=== PATIENT | male | born 1945 | race Caucasian/White ===

== ENCOUNTER → 2016-09-10 | Outpatient (CLI) | payer MEDICARE, BC ==
[~2016-09-10] MED LIST: AMANTADINE HCL100 M1 PO; BP MED; BYSTOLIC10 MG PO; BYSTOLIC20 MG PO; CELEBREX 200MG200 MG PO; COGENTIN 2MG2 MG/TA1 PO; ESKALITH300 MG PO; FLOMAX 0.40.4 MG/CAP PO; HALCION0.25 MG PO; LEVAQUIN 2250 MG/TAB PO; LITHIUM 30300 MG/CAP PO; MEDROL 4MG DOSPA4 MG PO; MOBIC15 MG PO; MULTI VITAMINS1 TAB PO; MYRBETR50MG PO; NORCO 325 MG-51 TAB PO; OSCAL 500 TAB500 MG; PARCOPA 25/101 UDTAB NG; PROSCAR 5MG5 MG PO; PROTONIX 40MG T40 MG PO; SINGULAIR 110 MG/TAB PO; TRIFLUOPERAZINE PO; TRIFLUOPERAZINE2 MG PO; UNABLE; VALTREX1 GM PO; VASOTEC20 MG PO; ZANTAC 300300 MG PO; ZOFRAN 4MG T4 MG/TAB PO; ZOFRAN ODT4 MG PO; [UNRECOGNIZED DRUG - OTHER] OP
== END ==
LOC: COL.PUL 08:00
DX: R06.02 Shortness of breath (principal); Z87.891 Personal history of nicotine dependence

== ENCOUNTER → 2016-09-11 | Outpatient (CLI) | payer MEDICARE, BC | LOC: COL.RAD 09:32 | DX: D48.7 Neoplasm of uncertain behavior of other specified sites (principal); R93.0 Abnormal findings on diagnostic imaging of skull and head, not elsewhere classified; Z87.891 Personal history of nicotine dependence; Z86.03 Personal history of neoplasm of uncertain behavior | CPT/HCPCS: A9503 ==

== ENCOUNTER 2016-09-17 12:38 | Inpatient (IN) | payer MEDICARE, BC ==
[2016-09-17] VITALS (14 sets, daily range): BP systolic 109–152; BP diastolic 49–91; PULSE 52–65; TEMP 97.9
[~2016-09-17] VITALS: Ht 188 cm; Wt 88.5 kg
[~2016-09-17 12:38] MED LIST changes: -HALCION0.25 MG PO; -OSCAL 500 TAB500 MG; -SINGULAIR 110 MG/TAB PO; -ZOFRAN ODT4 MG PO
[2016-09-17] MEDS ORDERED: OSCAL 500 TAB500 MG (17:15)
[2016-09-17] MEDS ORDERED: NORCO 325 MG-51 TAB PO (17:15)
[2016-09-17] MEDS ORDERED: HALCION0.25 MG PO (17:17)
[2016-09-17] MEDS ORDERED: SINGULAIR 110 MG/TAB PO (17:17)
[2016-09-17] MEDS ORDERED: MOBIC15 MG PO (17:18)
[2016-09-17] MEDS ORDERED: ZOFRAN ODT4 MG PO (17:19)
[2016-09-18 02:19] VITALS: BP 116/66; PULSE 47; TEMP 98
[2016-09-18 05:54] VITALS: BP 130/70; PULSE 85; TEMP 98.5
[2016-09-18 07:34] VITALS: BP 127/59; PULSE 46; TEMP 98.1
[2016-09-18] MEDS ORDERED: COGENTIN 2MG2 MG/TA1 PO (08:59)
[2016-09-18 13:36] VITALS: BP 112/61; PULSE 51; TEMP 97.3
[2016-09-18 17:08] VITALS: BP 115/61; PULSE 50; TEMP 97.4
[2016-09-18 21:59] VITALS: BP 120/57; PULSE 45; TEMP 97.8
[2016-09-19 02:27] VITALS: BP 116/56; PULSE 69; TEMP 98.1
[2016-09-19 05:09] VITALS: BP 133/59; PULSE 51; TEMP 98.3
[2016-09-19 10:09] VITALS: BP 127/62; PULSE 50; TEMP 97.1
[2016-09-19 13:24] VITALS: BP 127/68; PULSE 52; TEMP 97.7
[2016-09-19 18:40] VITALS: BP 133/66; PULSE 54; TEMP 98.6
[2016-09-19 21:13] VITALS: BP 112/45; PULSE 71; TEMP 97.6
[2016-09-20 02:08] VITALS: BP 102/50; PULSE 62; TEMP 98.2
[2016-09-20 05:21] VITALS: BP 118/50; PULSE 52; TEMP 98.6
[2016-09-20 10:00] VITALS: BP 112/67; PULSE 52; TEMP 96.8
[2016-09-20 14:00] VITALS: BP 112/67; PULSE 52; TEMP 96.8
== END 2016-09-20 16:00 | disposition home health service (06) | DRG 200 ==
LOC: COL.RAD 12:38 → SURG 16:57 → COL.RAD 19:18 → SURG 19:18
PROC: 0BBC3ZX Excision of Right Upper Lung Lobe, Percutaneous Approach, Diagnostic (ICD-10-PCS; principal; 2016-09-17)
PROC: 0W9930Z Drainage of Right Pleural Cavity with Drainage Device, Percutaneous Approach (ICD-10-PCS; 2016-09-17)
DX: J95.811 Postprocedural pneumothorax (principal); C34.11 Malignant neoplasm of upper lobe, right bronchus or lung; I10 Essential (primary) hypertension; F20.9 Schizophrenia, unspecified; J44.9 Chronic obstructive pulmonary disease, unspecified; Z87.891 Personal history of nicotine dependence

== ENCOUNTER 2017-09-29 06:47 | Day surgery (SDC) | payer MEDICARE, BC ==
[~2017-09-29] VITALS: Ht 185.4 cm; Wt 90.7 kg
[~2017-09-29 06:47] MED LIST changes: +HALCION0.25 MG PO; +OSCAL 500 TAB500 MG; +SINGULAIR 110 MG/TAB PO; +ZOFRAN ODT4 MG PO
[2017-09-29 07:22] VITALS: BP 134/91; PULSE 76; TEMP 98.8
[2017-09-29] MEDS ORDERED: LINZESS72 MCG PO (07:35)
[2017-09-29] MEDS ORDERED: VESICARE10 MG PO (07:35)
[2017-09-29 08:52] VITALS: BP 144/84; PULSE 68; TEMP 98
[2017-09-29 09:00] VITALS: BP 141/108; PULSE 65
[2017-09-29 09:15] VITALS: BP 136/83; PULSE 64
[2017-09-29 09:30] VITALS: BP 148/74; PULSE 66
[2017-09-29 12:49] VITALS: BP 133/72; PULSE 64
== END 2017-09-29 10:15 | disposition home or self-care (01) ==
LOC: SDCO 06:47
DX: J98.11 Atelectasis (principal); C34.90 Malignant neoplasm of unspecified part of unspecified bronchus or lung; J44.9 Chronic obstructive pulmonary disease, unspecified; R06.02 Shortness of breath; R05 Cough; K58.9 Irritable bowel syndrome, unspecified; I10 Essential (primary) hypertension; M19.90 Unspecified osteoarthritis, unspecified site; F20.9 Schizophrenia, unspecified; K21.9 Gastro-esophageal reflux disease without esophagitis; E83.52 Hypercalcemia; E87.1 Hypo-osmolality and hyponatremia; F32.9 Major depressive disorder, single episode, unspecified; F41.9 Anxiety disorder, unspecified; N40.0 Benign prostatic hyperplasia without lower urinary tract symptoms; N32.89 Other specified disorders of bladder; R93.8 Abnormal findings on diagnostic imaging of other specified body structures; Z88.5 Allergy status to narcotic agent; Z85.118 Personal history of other malignant neoplasm of bronchus and lung; Z87.891 Personal history of nicotine dependence
CPT/HCPCS: OP; J2704; J3010; J7030

== ENCOUNTER → 2017-10-19 | Outpatient (CLI) | payer MEDICARE, BC ==
[~2017-10-19] MED LIST changes: +LINZESS72 MCG PO; +VESICARE10 MG PO
== END ==
LOC: COL.VAS 09:12
DX: I51.7 Cardiomegaly (principal)

== ENCOUNTER 2017-11-21 18:56 | Emergency (ER) | payer MEDICARE, BC ==
[~2017-11-21] VITALS: Ht 185.4 cm; Wt 93.6 kg
[2017-11-21 18:59] VITALS: TEMP 97.5
[2017-11-21] MEDS ORDERED: LIPITOR20 MG PO (19:47)
[2017-11-21 20:44] LABS: BASO % 0.4 % (0.0-2.0); EOS # 0.2 (0.0-0.7); EOS % 2.8 % (0-4.0); GRAN # 6.1 (1.4-6.5); GRAN % 78.1 % (42.2-75.2); HEMATOCRIT 43.2 % (42.0-52.0); HEMOGLOBIN 14.8 g/dl (13.5-18.0); LYMPH # 0.6 (1.2-3.4); LYMPH % 7.5 % (20.0-51.0); MEAN CELL VOLUME 86 fl (80.0-100.0); MEAN CORPUSCULAR HEMOGLOBIN 29 pg (27.0-31.0); MEAN CORPUSCULAR HGB CONC 34 g/dl (33.0-37.0); MEAN PLATELET VOLUME 8.5 fl (7.4-10.4); MONO # 0.8 (0.1-0.6); MONO % 10.3 % (1.7-9.3); PLATELET COUNT 246 K/mm3 (130-400); RED BLOOD COUNT 5.03 M/mm3 (4.20-5.60); REDCELL DISTRIBUTION WIDTH-CV 13.9 % (11.5-14.5)
[2017-11-21 20:47] LABS: ALBUMIN 4.3 gm/dL (3.5-5.0); BILIRUBIN,TOTAL 0.6 mg/dL (0.0-1.0); CALCIUM 9.6 mg/dL (8.4-10.2); CREATININE, serum 0.86 mg/dL (0.66-1.25); POTASSIUM 4.3 mmol/L (3.4-5.0); TOTAL PROTEIN 7.8 gm/dL (6.4-8.2)
[2017-11-21 21:08] VITALS: BP 122/76; PULSE 67
== END 2017-11-21 21:09 | disposition home or self-care (01) ==
LOC: COL.ER 18:56
PROVIDERS: Physician Assistant
DX: I10 Essential (primary) hypertension (principal); J44.9 Chronic obstructive pulmonary disease, unspecified; Z85.118 Personal history of other malignant neoplasm of bronchus and lung; F31.9 Bipolar disorder, unspecified; F20.9 Schizophrenia, unspecified; Z87.891 Personal history of nicotine dependence

== ENCOUNTER → 2018-06-18 | Outpatient (CLI) | payer MEDICARE, BC ==
[~2018-06-18] MED LIST changes: +LIPITOR20 MG PO
== END ==
LOC: COL.VAS 13:30
DX: I27.20 Pulmonary hypertension, unspecified (principal)

== ENCOUNTER 2018-07-08 18:30 | Emergency (ER) | payer MEDICARE, BC ==
[~2018-07-08] VITALS: Ht 185.4 cm; Wt 90.9 kg
[2018-07-08 18:39] VITALS: TEMP 98
[2018-07-08 19:05] LABS: BASO % 0.3 % (0.0-2.0); EOS # 0.3 (0.0-0.7); EOS % 4.4 % (0-4.0); GRAN # 5.1 (1.4-6.5); GRAN % 73.3 % (42.2-75.2); HEMATOCRIT 45.8 % (42.0-52.0); HEMOGLOBIN 14.7 g/dl (13.5-18.0); LYMPH # 0.7 (1.2-3.4); MEAN CELL VOLUME 89 fl (80.0-100.0); MEAN CORPUSCULAR HEMOGLOBIN 28 pg (27.0-31.0); MEAN CORPUSCULAR HGB CONC 32 g/dl (33.0-37.0); MEAN PLATELET VOLUME 8.7 fl (7.4-10.4); MONO # 0.8 (0.1-0.6); MONO % 11.3 % (1.7-9.3); PLATELET COUNT 245 K/mm3 (130-400); RED BLOOD COUNT 5.17 M/mm3 (4.20-5.60); REDCELL DISTRIBUTION WIDTH-CV 13.2 % (11.5-14.5)
[2018-07-08 19:13] LABS: INR 0.9 (0.8-3.0); PROTHROMBIN TIME 10.4 SECONDS (9.7-12.8)
[2018-07-08 19:19] LABS: ALANINE AMINOTRANSFERASE 27 U/L (21-72); ALKALINE PHOSPHATASE 73 U/L (50-136); ANION GAP 9 mmol/L (7-16); AST,SGOT 31 U/L (15-37); BILIRUBIN,TOTAL 0.8 mg/dL (0.0-1.0); BLOOD UREA NITROGEN 17 mg/dL (9-20); CALCIUM 9.5 mg/dL (8.4-10.2); CARBON DIOXIDE 22 mmol/L (22-30); CHLORIDE 102 mmol/L (98-107); CREATININE, serum 0.93 mg/dL (0.66-1.25); GLUCOSE 104 mg/dL (74-106); POTASSIUM 4.1 mmol/L (3.4-5.0); SODIUM 133 mmol/L (137-145); TOTAL PROTEIN 6.8 gm/dL (6.4-8.2)
[2018-07-08 19:20] LABS: C-REACTIVE PROTEIN < 0.5 mg/dL (0.0-0.9)
[2018-07-08] MEDS ORDERED: LINZESS145CAP ×2 (19:54→19:55)
[2018-07-08] MEDS ORDERED: VESICARE10 MG PO (19:56)
[2018-07-08] MEDS ORDERED: RISPERDAL 1M1 MG/TAB PO (19:56)
[2018-07-08] MEDS ORDERED: LIPITOR20 MG PO (19:57)
[2018-07-08 20:11] LABS: COLLECTION METHOD CLEAN CATCH
[2018-07-08 20:21] LABS: PH 6 (5-8); SQUAMOUS EPITHELIAL None Seen /hpf; URINE APPEARANCE Clear; URINE BACTERIA None Seen /hpf; URINE BILIRUBIN Negative (NEGATIVE); URINE BLOOD Negative (NEGATIVE); URINE COLOR Straw; URINE GLUCOSE Negative (NEGATIVE); URINE KETONE Negative (NEGATIVE); URINE LEUKOCYTE ESTERASE Negative (NEGATIVE); URINE NITRATE Negative (NEGATIVE); URINE PROTEIN(semi-quant) Negative (NEGATIVE); URINE RBC 0-2 /hpf; URINE UROBILINOGEN Negative (NEGATIVE)
[2018-07-08 21:24] VITALS: BP 134/85; PULSE 61
== END 2018-07-08 21:26 | disposition home or self-care (01) ==
LOC: COL.ER 18:30
PROVIDERS: Emergency Medicine
DX: R51 Headache (principal); R53.81 Other malaise; J44.9 Chronic obstructive pulmonary disease, unspecified; I10 Essential (primary) hypertension; F31.9 Bipolar disorder, unspecified; F20.9 Schizophrenia, unspecified
CPT/HCPCS: J7030

== ENCOUNTER → 2018-08-30 | Outpatient (CLI) | payer MEDICARE, BC ==
[~2018-08-30] MED LIST changes: +LINZESS145CAP; +RISPERDAL 1M1 MG/TAB PO
== END ==
LOC: COL.RAD 15:51
DX: R47.81 Slurred speech (principal); R51 Headache; Z85.118 Personal history of other malignant neoplasm of bronchus and lung

== ENCOUNTER → 2018-11-10 | Outpatient (CLI) | payer MEDICARE, BC | LOC: COL.RAD 09:15 | DX: R79.89 Other specified abnormal findings of blood chemistry (principal) | CPT/HCPCS: A9516 ==

== ENCOUNTER → 2019-04-27 | Outpatient (CLI) | payer MEDICARE, BC | LOC: MHCPAIN 14:04 | DX: G89.29 Other chronic pain (principal); M47.817 Spondylosis without myelopathy or radiculopathy, lumbosacral region; M54.16 Radiculopathy, lumbar region; M53.3 Sacrococcygeal disorders, not elsewhere classified | CPT/HCPCS: G0463 ==

== ENCOUNTER → 2019-04-28 | Outpatient (CLI) | payer MEDICARE, BC | LOC: MHCPAIN 13:43 | DX: M47.817 Spondylosis without myelopathy or radiculopathy, lumbosacral region (principal); M54.16 Radiculopathy, lumbar region | CPT/HCPCS: J1100; Q9967 ==

== ENCOUNTER → 2019-05-09 | Outpatient (CLI) | payer MEDICARE, BC | LOC: MHCPAIN 10:44 | DX: G89.29 Other chronic pain (principal); M47.817 Spondylosis without myelopathy or radiculopathy, lumbosacral region; M54.16 Radiculopathy, lumbar region; M53.3 Sacrococcygeal disorders, not elsewhere classified | CPT/HCPCS: G0463 ==

== ENCOUNTER → 2019-05-16 | Outpatient (CLI) | payer MEDICARE, BC | LOC: MHCPAIN 10:55 | DX: M48.07 Spinal stenosis, lumbosacral region (principal); M51.27 Other intervertebral disc displacement, lumbosacral region | CPT/HCPCS: J1100; Q9967 ==

== ENCOUNTER → 2019-05-31 | Outpatient (CLI) | payer MEDICARE, BC | LOC: MHCPAIN 14:39 | DX: M54.16 Radiculopathy, lumbar region (principal); M53.3 Sacrococcygeal disorders, not elsewhere classified | CPT/HCPCS: G0463 ==

== ENCOUNTER → 2019-06-16 | Outpatient (CLI) | payer MEDICARE, BC | LOC: MHCPAIN 12:44 | DX: M48.07 Spinal stenosis, lumbosacral region (principal) ==

== ENCOUNTER → 2019-06-28 | Outpatient (CLI) | payer MEDICARE, BC | LOC: MHCPAIN 15:07 | DX: M47.817 Spondylosis without myelopathy or radiculopathy, lumbosacral region (principal); M54.16 Radiculopathy, lumbar region | CPT/HCPCS: G0463 ==

== ENCOUNTER 2019-08-18 15:20 | Outpatient (RCR) | payer MEDICARE, BC ==
[2019-11-10] MEDS ORDERED: XALATAN EYE DROPS OU (12:09)
[2019-11-10] MEDS ORDERED: TRELEGY ELLIPT1 EACH IH (12:10)
[2019-11-10] MEDS ORDERED: IPRATROPIUM BROM3 M1 IH (12:10)
== END 2019-11-16 | disposition home or self-care (01) ==
LOC: WSPT
DX: M47.26 Other spondylosis with radiculopathy, lumbar region (principal); G89.29 Other chronic pain

== ENCOUNTER 2019-11-10 11:04 | Day surgery (SDC) | payer MEDICARE, BC ==
[~2019-11-10] VITALS: Ht 185.4 cm; Wt 84.3 kg
[2019-11-10 11:40] VITALS: BP 118/85; PULSE 115; TEMP 97.4
[2019-11-10] MEDS ORDERED: XALATAN EYE DROPS OU (12:09)
[2019-11-10] MEDS ORDERED: IPRATROPIUM BROM3 M1 IH (12:10)
[2019-11-10] MEDS ORDERED: TRELEGY ELLIPT1 EACH IH (12:10)
[2019-11-10 14:06] VITALS: TEMP 97.7
[2019-11-10 14:19] VITALS: BP 123/86; PULSE 109
--- NOTE | 2019-11-10 14:19 | NUR ---
Patient returns to room 6 per cart from PACU accompanied by Gaby GONZALEZ and is awake and alert. Temp 96.9 and room air sats 97%. Suprapubic catheter is draining pink tinged urine to dependent drainage bag. Scant bloody drainage noted at suprapubic insertion site. Denies pain or nausea. IV fluids infusing and site is free of redness. Siderails up x2 and call light in reach. grain thresher in the room. Patient is sipping on water.
[2019-11-10 14:34] VITALS: BP 139/96; PULSE 107
--- NOTE | 2019-11-10 14:34 | NUR ---
Urine remains pink tinged. Drinking Sprite.
[2019-11-10 14:49] VITALS: BP 132/73; PULSE 103
--- NOTE | 2019-11-10 14:49 | NUR ---
Suprapubic catheter continues to drain pink tinged urine. No clots noted. Denies pain or nausea.
--- NOTE | 2019-11-10 15:00 | NUR ---
IV discontinued and shown the patient and daycare provider on how to change dependent drainage bag to leg. Provided both bags to take home and alcohol wipes. Suprapubic secured with stat lock. Urine becoming more yellow.
--- NOTE | 2019-11-10 15:25 | NUR ---
Patient assisted with dressing. IV discontinued and site is free of redness. Tolerated toast and Sprite.
--- NOTE | 2019-11-10 15:33 | NUR ---
Patient dismissed to home driven by career development associate Lenore and taken to the front door per wheelchair and dismissed to home with instructions in hand. Sent home with leg bag and dependent drainage bags, alcohol wipes and office number for questions and concerns.
== END 2019-11-10 15:35 | disposition home or self-care (01) ==
LOC: SDCO 11:04
DX: R33.9 Retention of urine, unspecified (principal); C34.90 Malignant neoplasm of unspecified part of unspecified bronchus or lung; Z11.59 Encounter for screening for other viral diseases; Z90.79 Acquired absence of other genital organ(s); Z88.5 Allergy status to narcotic agent; Z87.891 Personal history of nicotine dependence
CPT/HCPCS: C1769; J0690; J1100; J1885; J2405; J2704

== ENCOUNTER 2020-01-23 13:55 | Outpatient (RCR) | payer MEDICARE, BC ==
[~2020-01-23 13:55] MED LIST changes: +IPRATROPIUM BROM3 M1 IH; +TRELEGY ELLIPT1 EACH IH; +XALATAN EYE DROPS OU
[2020-03-01] MEDS ORDERED: OMNICEF 300MG300 MG PO (20:29)
[2020-04-07] MEDS ORDERED: FLOMAX 0.40.4 MG/CAP PO (07:16)
== END 2020-04-22 | disposition home or self-care (01) ==
LOC: WSST
DX: R13.12 Dysphagia, oropharyngeal phase (principal)

== ENCOUNTER → 2020-02-10 | Outpatient (CLI) | payer MEDICARE, BC | LOC: COL.RAD | DX: C34.90 Malignant neoplasm of unspecified part of unspecified bronchus or lung (principal); R13.10 Dysphagia, unspecified ==

== ENCOUNTER 2020-03-01 18:56 | Emergency (ER) | payer MEDICARE, BC ==
[~2020-03-01] VITALS: Ht 185.4 cm; Wt 78.2 kg
[2020-03-01 19:48] LABS: BASO % 0.4 % (0.0-2.0); EOS # 0.3 (0.0-0.7); EOS % 3.9 % (0-4.0); GRAN # 5.8 (1.4-6.5); GRAN % 79.1 % (42.2-75.2); HEMATOCRIT 47.2 % (42.0-52.0); HEMOGLOBIN 15.1 g/dl (13.5-18.0); LYMPH # 0.6 (1.2-3.4); LYMPH % 8.7 % (20.0-51.0); MEAN CELL VOLUME 90 fl (80.0-100.0); MEAN CORPUSCULAR HEMOGLOBIN 29 pg (27.0-31.0); MEAN CORPUSCULAR HGB CONC 32 g/dl (33.0-37.0); MEAN PLATELET VOLUME 9.1 fl (7.4-10.4); MONO # 0.6 (0.1-0.6); MONO % 7.5 % (1.7-9.3); PLATELET COUNT 283 K/mm3 (130-400); RED BLOOD COUNT 5.27 M/mm3 (4.20-5.60); REDCELL DISTRIBUTION WIDTH-CV 13.5 % (11.5-14.5)
[2020-03-01 19:55] LABS: INR 1.2 (0.8-3.0); PROTHROMBIN TIME 13.7 SECONDS (9.7-12.8)
[2020-03-01 20:01] LABS: ALANINE AMINOTRANSFERASE 20 U/L (4-49); ALBUMIN 4.1 gm/dL (3.5-5.0); ALKALINE PHOSPHATASE 90 U/L (50-136); ANION GAP 9 mmol/L (7-16); AST,SGOT 27 U/L (15-37); BILIRUBIN,TOTAL 0.5 mg/dL (0.0-1.0); BLOOD UREA NITROGEN 28 mg/dL (9-20); C-REACTIVE PROTEIN 2.1 mg/dL (0.0-0.9); CALCIUM 9.9 mg/dL (8.4-10.2); CARBON DIOXIDE 23 mmol/L (22-30); CHLORIDE 106 mmol/L (98-107); CREATININE, serum 1.31 (0.66-1.25); GLUCOSE 136 mg/dL (74-106); LIPASE 250 U/L (23-300); POTASSIUM 4.2 mmol/L (3.4-5.0); SODIUM 138 mmol/L (137-145); TOTAL PROTEIN 7.4 gm/dL (6.4-8.2)
[2020-03-01 20:07] LABS: COLLECTION METHOD CLEAN CATCH
[2020-03-01 20:20] LABS: PH 5 (5-8); SQUAMOUS EPITHELIAL None Seen /hpf; URINE APPEARANCE Cloudy; URINE BACTERIA Moderate /hpf; URINE BILIRUBIN Negative (NEGATIVE); URINE BLOOD 1+ (NEGATIVE); URINE COLOR Yellow; URINE GLUCOSE Negative (NEGATIVE); URINE KETONE Negative (NEGATIVE); URINE LEUKOCYTE ESTERASE 3+ (NEGATIVE); URINE NITRATE Positive (NEGATIVE); URINE PROTEIN(semi-quant) Negative (NEGATIVE); URINE UROBILINOGEN Negative (NEGATIVE)
[2020-03-01 20:20] LABS: TROPONIN-I < 0.012 ng/mL (0.000-0.035)
[2020-03-01] MEDS ORDERED: OMNICEF 300MG300 MG PO (20:29)
[2020-03-01 21:00] VITALS: BP 100/77; PULSE 57; TEMP 97.5
== END 2020-03-01 21:10 | disposition home or self-care (01) ==
LOC: COL.ER 18:56
PROVIDERS: Emergency Medicine
DX: T83.098A Other mechanical complication of other urinary catheter, initial encounter (principal); R33.9 Retention of urine, unspecified; F17.210 Nicotine dependence, cigarettes, uncomplicated; Z79.51 Long term (current) use of inhaled steroids
CPT/HCPCS: J0696; J7040

== ENCOUNTER 2020-04-07 06:46 | Emergency (ER) | payer MEDICARE, BC ==
[~2020-04-07] VITALS: Ht 185.4 cm; Wt 88.6 kg
[~2020-04-07 06:46] MED LIST changes: +OMNICEF 300MG300 MG PO
[2020-04-07 06:53] VITALS: TEMP 98
[2020-04-07] MEDS ORDERED: FLOMAX 0.40.4 MG/CAP PO (07:16)
[2020-04-07 07:36] VITALS: BP 128/73; PULSE 94
== END 2020-04-07 07:53 | disposition home or self-care (01) ==
LOC: COL.ER 06:46
DX: T83.198A Other mechanical complication of other urinary devices and implants, initial encounter (principal); I10 Essential (primary) hypertension; K21.9 Gastro-esophageal reflux disease without esophagitis; J44.9 Chronic obstructive pulmonary disease, unspecified; Z88.6 Allergy status to analgesic agent

== ENCOUNTER → 2020-04-18 | Outpatient (CLI) | payer MEDICARE, BC | LOC: COL.RAD 09:15 | DX: C34.11 Malignant neoplasm of upper lobe, right bronchus or lung (principal) | CPT/HCPCS: A9503 ==

== ENCOUNTER 2020-06-13 12:15 | Inpatient (IN) | payer MEDICARE, BC ==
[~2020-06-13] VITALS: Ht 185.4 cm; Wt 73.0 kg
[~2020-06-13 12:15] MED LIST changes: +LINZESS145CAP PO
[2020-06-13 13:49] LABS: ARTERIAL BLD GAS O2 SATURATION 95.9 % (92-100); ARTERIAL BLD GAS TCO2 CT 17.9; ARTERIAL BLOOD GAS BASE EXCESS -5.4 (-2-2); ARTERIAL BLOOD GAS HCO3 17.1 meq/L (22-26); ARTERIAL BLOOD GAS PCO2 26.3 mmHg (35-45); ARTERIAL BLOOD GAS PO2 70.2 mmHg (80-100); ARTERIAL BLOOD GAS pH 7.43 (7.35-7.45)
[2020-06-13 14:13] LABS: MEAN CELL VOLUME 89 fl (80.0-100.0); MEAN CORPUSCULAR HEMOGLOBIN 28 pg (27.0-31.0); MEAN CORPUSCULAR HGB CONC 32 g/dl (33.0-37.0); MEAN PLATELET VOLUME 8.6 fl (7.4-10.4); PLATELET COUNT 502 K/mm3 (130-400); REDCELL DISTRIBUTION WIDTH-CV 14.9 % (11.5-14.5)
[2020-06-13 14:24] LABS: INR 2.3 (0.8-3.0); PROTHROMBIN TIME 26.2 SECONDS (9.7-12.8)
[2020-06-13 14:28] LABS: ALANINE AMINOTRANSFERASE 170 U/L (4-49); ALBUMIN 4.1 gm/dL (3.5-5.0); ALKALINE PHOSPHATASE 99 U/L (50-136); ANION GAP 11 mmol/L (7-16); AST,SGOT 73 U/L (15-37); BILIRUBIN,TOTAL 0.8 mg/dL (0.0-1.0); BLOOD UREA NITROGEN 28 mg/dL (9-20); CALCIUM 10.6 mg/dL (8.4-10.2); CARBON DIOXIDE 19 mmol/L (22-30); CHLORIDE 108 mmol/L (98-107); CREATININE, serum 1.11 (0.66-1.25); GLUCOSE 120 mg/dL (74-106); POTASSIUM 4.5 mmol/L (3.4-5.0); SODIUM 138 mmol/L (137-145); TOTAL PROTEIN 7.6 gm/dL (6.4-8.2)
[2020-06-13 14:33] LABS: C-REACTIVE PROTEIN < 0.5 mg/dL (0.0-0.9)
[2020-06-13 14:38] LABS: TROPONIN-I < 0.012 ng/mL (0.000-0.035)
[2020-06-13 15:38] LABS: MUCOUS Present /lpf; PH 6 (5-8); SQUAMOUS EPITHELIAL None Seen /hpf; URINE APPEARANCE Hazy; URINE BACTERIA Rare /hpf; URINE BILIRUBIN Negative (NEGATIVE); URINE BLOOD Negative (NEGATIVE); URINE COLOR Yellow; URINE GLUCOSE Negative (NEGATIVE); URINE KETONE Negative (NEGATIVE); URINE LEUKOCYTE ESTERASE 3+ (NEGATIVE); URINE NITRATE Negative (NEGATIVE); URINE PROTEIN(semi-quant) Negative (NEGATIVE); URINE RBC 0-2 /hpf; URINE UROBILINOGEN Negative (NEGATIVE)
[2020-06-13 18:28] LABS: BAND 3 % (0-10); EOSINOPHIL 2 % (0-4); LYMPHOCYTE 3 % (20.0-51.0); MYELOCYTE 3 % (0-0); NEUTROPHILS 85 % (42.0-75.2); PLATELET ESTIMATE INCREASED (NORMAL)
[2020-06-13 20:10] VITALS: BP 116/64; PULSE 68; TEMP 97.2
[2020-06-13 22:54] VITALS: BP 116/64; PULSE 68; TEMP 97.2
--- NOTE | 2020-06-13 23:45 | NUR ---
Patient arrived to medical floor. Assessment complete. Wheezing with expiration, patient 94% on room air. Heart sounds normal. Bowels active x4. Pulses present throughout. No edema noted. IV right AC without complications. Abrasion to left thigh present. Patient has gutierrez to dependent drainage. Changed from leg bag to gutierrez bag. Denies pain. Orientated to medical floor. Denies questions. Denies needs. Call light in reach.
[2020-06-14] VITALS (7 sets, daily range): BP systolic 112–151; BP diastolic 73–88; PULSE 65–77; TEMP 97.6–98.4
--- NOTE | 2020-06-14 02:00 | NUR ---
Resting in bed. Denies needs. Call light in reach.
--- NOTE | 2020-06-14 06:36 | NUR ---
Patient had uneventful night. Resting in bed this AM. Call light in reach.
--- NOTE | 2020-06-14 07:10 | NUR ---
Report given CARLOS Sandy
--- NOTE | 2020-06-14 08:20 | NUR ---
CONSULT called to Dr Castaneda but he called back stating to call Rosendo. Office called and information passed on to Noemy.
[2020-06-14 08:48] LABS: HEMATOCRIT 45.9 % (42.0-52.0); HEMOGLOBIN 14.8 g/dl (13.5-18.0); MEAN CELL VOLUME 88 fl (80.0-100.0); MEAN CORPUSCULAR HEMOGLOBIN 28 pg (27.0-31.0); MEAN CORPUSCULAR HGB CONC 32 g/dl (33.0-37.0); MEAN PLATELET VOLUME 8.6 fl (7.4-10.4); PLATELET COUNT 468 K/mm3 (130-400); RED BLOOD COUNT 5.23 M/mm3 (4.20-5.60); REDCELL DISTRIBUTION WIDTH-CV 14.7 % (11.5-14.5)
[2020-06-14 09:09] LABS: CALCIUM 10.2 mg/dL (8.4-10.2); CHOLESTEROL RISK RATIO 4.6; CREATININE, serum 0.96 (0.66-1.25); POTASSIUM 4.2 mmol/L (3.4-5.0)
[2020-06-14 09:59] LABS: BAND 8 % (0-10); EOSINOPHIL 1 % (0-4); LYMPHOCYTE 1 % (20.0-51.0); METAMYELOCYTE 3 % (0-0); NEUTROPHILS 80 % (42.0-75.2); OVALOCYTES 1+
[2020-06-14 10:00] LABS: PLATELET ESTIMATE INCREASED (NORMAL)
--- NOTE | 2020-06-14 11:04 | NUR ---
MORNING MEDS GIVEN. PT awake and resting in recliner. ate approx 60% breakfast. denies pain. AOX4. slow speech pattern. able to make needs known. IV to RT AC intact but pt unable to keep arm straight with continuous fluids. will need new IV site. reports some soreness to bottom from BM earlier today. cream available for application. no other needs at this time
--- NOTE | 2020-06-14 16:38 | NUR ---
Gaming Commissioner received a phone call from Rickie at [facility]. Rickie advised they provide in home services to patient. Rickie advised she did not have concerns about patient returning home as far as she knew. Once discharged, orders can be faxed to fax#[phone]). Gaming Commissioner contacted patient by room phone to complete intake. Patient could be difficult to understand at times. Patient lives in [place] and states he has caregivers that come into his home to help him. Patient sees Dr. Reynoso for primary care and has medications from delivered from [facility]. Patient has a walker, cane, and wheelchair at home. Patient thinks he may have DPOA-HC but SW did not locate copy in EMR. Patient thinks it may designate a newphew. Patient is not , does not have children, and his parents are . Patient states he has two siblings, Luis (ph#[phone]). Patient states he plans to return home upon discharge. SW attempted to contact Luis and left him a message.
--- NOTE | 2020-06-14 19:24 | NUR ---
report given to machinist 2nd shift nurse Helen. made aware of order to change suprapubic catheter when available as per urology order. no other concerns this shift. fluids dc'd.
--- NOTE | 2020-06-14 20:56 | NUR ---
Resting in bed. Assessment complete. Lungs clear. Heart sounds normal. Bowels active x4. Pulses present throughout. No edema noted. INT right AC flushed without complications. Denies pain. Denies needs. Suprapubic gutierrez changed per orders to 16 amharic. Tolerated well. Call light in reach. Bed alarm in place.
[2020-06-15] VITALS (7 sets, daily range): BP systolic 130–145; BP diastolic 76–91; PULSE 67–87; TEMP 97.5–98.6
--- NOTE | 2020-06-15 02:38 | NUR ---
Resting in bed. Denies needs. Call light in reach.
--- NOTE | 2020-06-15 06:19 | NUR ---
Patient gutierrez changed per orders at beginning of shift. Otherwise uneventful night. Resting night. Resting in bed this AM. Call light in reach.
--- NOTE | 2020-06-15 07:39 | NUR ---
Report given to CARLOS Sandy
[2020-06-15 07:56] LABS: HEMATOCRIT 45.5 % (42.0-52.0); HEMOGLOBIN 14.6 g/dl (13.5-18.0); MEAN CELL VOLUME 88 fl (80.0-100.0); MEAN CORPUSCULAR HEMOGLOBIN 28 pg (27.0-31.0); MEAN CORPUSCULAR HGB CONC 32 g/dl (33.0-37.0); MEAN PLATELET VOLUME 8.5 fl (7.4-10.4); PLATELET COUNT 502 K/mm3 (130-400); RED BLOOD COUNT 5.17 M/mm3 (4.20-5.60); REDCELL DISTRIBUTION WIDTH-CV 14.7 % (11.5-14.5)
[2020-06-15 08:08] LABS: ALBUMIN 3.6 gm/dL (3.5-5.0); CALCIUM 10.2 mg/dL (8.4-10.2); CREATININE, serum 0.91 (0.66-1.25); POTASSIUM 4.1 mmol/L (3.4-5.0)
[2020-06-15 08:42] LABS: LYMPHOCYTE 13 % (20.0-51.0); NEUTROPHILS 85 % (42.0-75.2); OVALOCYTES 1+; PLATELET ESTIMATE INCREASED (NORMAL)
[2020-06-15 10:39] LABS: COLLECTION METHOD IN
--- NOTE | 2020-06-15 19:01 | NUR ---
END OF SHIFT NOTE: PT AOX4 but experienced some conversational confusion and trouble changing TV channel in afternoon. Was also requesting assistance to void despite having suprapubic catheter. Spoke with caregiver Magui [phone] and discussed mental state. she states pt does experience occasional bouts of confusion at baseline. pt remains oriented to pers/place/time. denied pain. attempted to have BM this shift and sat on commode without success. refused prune juice. tolerating 50 to 90% of meals. call light within reach. pt sepnt most of day on recliner for meals and is currently in bed. no new concerns noted this shift.
--- NOTE | 2020-06-15 20:00 | NUR ---
Resting in bed. Assessment complete. Lungs clear. Heart sounds normal. Bowels active x4. Pulses present throughout. No edema noted. INT right AC flushed without complications. Denies pain. Denies needs. Suprapubic guiterrez to dependent drainage. Call light in reach.
--- NOTE | 2020-06-15 22:41 | NUR ---
Reported low ABD discomfort. Hodge draining clear yellow urine without complications. Provided with PRN tylenol.
--- NOTE | 2020-06-15 23:53 | NUR ---
Reports nausea. Requested crackers. Provided to patient. Will obtain order for zofran.
--- NOTE | 2020-06-16 01:58 | NUR ---
Resting in bed. Denies needs. Call light in reach.
[2020-06-16 04:09] VITALS: BP 142/85; PULSE 85; TEMP 98.8
--- NOTE | 2020-06-16 04:23 | NUR ---
Reports nausea returned. Zofran not due. SPoke with Renata SCHMIDT. Phenergan added.
--- NOTE | 2020-06-16 05:58 | NUR ---
Patient reported nausea during night. Given zofran and phenergan. Otherwise uneventful night. Resting in bed this AM. Call light in reach.
--- NOTE | 2020-06-16 06:56 | NUR ---
Report given to CARLOS Linton
[2020-06-16 08:22] VITALS: BP 149/85; PULSE 78; TEMP 97.9
[2020-06-16 10:06] VITALS: BP 115/84; PULSE 99; TEMP 98
[2020-06-16] MEDS ORDERED: RT Albuterol HFA MDI IH (10:19)
[2020-06-16] MEDS ORDERED: TYLENOL 325MG325 MG PO (10:21)
[2020-06-16] MEDS ORDERED: DECADRON6 MG PO (10:22)
[2020-06-16] MEDS ORDERED: PROAIR HFA0.09 MG/AC IH (10:22)
[2020-06-16] MEDS ORDERED: XARELTO20 MG PO (10:23)
[2020-06-16] MEDS ORDERED: OMNICEF 300MG300 MG PO (10:27)
[2020-06-16] MEDS ORDERED: CIPRO 500MG TA500 MG PO (10:27)
--- NOTE | 2020-06-16 15:00 | NUR ---
Patient alert and oriented. Denies any pain. Patient suprapubic catheter appear okay, with stat lock in place. Patient show good appetite towards meal. Caregiver was provided with discharge information, new home medications. Discussed with factory worker, homehealth was setup for for patient. Patient appear to be in a stable condition at the time of discharge. INT discontinued. Suprapubic catheter connected to leg bag attached to patient left thigh. Patient have no further concern or question at this time.
--- NOTE | 2020-06-16 18:07 | NUR ---
Name of caregiver is Magui.
--- NOTE | 2020-06-18 14:33 | NUR ---
Console Manager faxed discharge orders for Home Health PT/OT/Nursing to [facility].
== END 2020-06-16 16:50 | disposition home or self-care (01) | DRG 698 ==
LOC: COL.ER 12:15 → MEDICAL 16:39
PROVIDERS: Emergency Medicine; Physician Assistant; ADMIT Student in an Organized Health Care Education/Training Program
DX: T83.511A Infection and inflammatory reaction due to indwelling urethral catheter, initial encounter (principal); A41.52 Sepsis due to Pseudomonas; G93.41 Metabolic encephalopathy; U07.1 COVID-19; J12.89 Other viral pneumonia; E87.2 Acidosis; J44.0 Chronic obstructive pulmonary disease with (acute) lower respiratory infection; F20.89 Other schizophrenia; N39.0 Urinary tract infection, site not specified; B96.5 Pseudomonas (aeruginosa) (mallei) (pseudomallei) as the cause of diseases classified elsewhere; B96.4 Proteus (mirabilis) (morganii) as the cause of diseases classified elsewhere; R47.1 Dysarthria and anarthria; F31.9 Bipolar disorder, unspecified; F20.9 Schizophrenia, unspecified; E83.52 Hypercalcemia; Y84.8 Other medical procedures as the cause of abnormal reaction of the patient, or of later complication, without mention of misadventure at the time of the procedure; Z86.711 Personal history of pulmonary embolism; Z87.891 Personal history of nicotine dependence; Z85.118 Personal history of other malignant neoplasm of bronchus and lung
CPT/HCPCS: 99223-AI; 99232-AI; 99233-AI; 99239; A4314; J0692; J2405; J2550; J7030; J8540

== ENCOUNTER 2020-10-12 10:00 | Outpatient (RCR) | payer OTHER, BC ==
[~2020-10-12 10:00] MED LIST changes: +CIPRO 500MG TA500 MG PO; +DECADRON6 MG PO; +PROAIR HFA0.09 MG/AC IH; +RT Albuterol HFA MDI IH; +TYLENOL 325MG325 MG PO; +XARELTO20 MG PO
== END 2020-10-14 | disposition home or self-care (01) ==
LOC: MKS.ESL.PT
DX: R53.1 Weakness (principal); W19.XXXA Unspecified fall, initial encounter

== ENCOUNTER 2020-11-09 13:15 | Outpatient (RCR) | payer MEDICARE, BC, OTHER | END 2021-01-22 | disposition home or self-care (01) | LOC: MKS.ESL.OT | DX: R53.1 Weakness (principal) ==

== ENCOUNTER → 2021-01-29 | Outpatient (CLI) | payer MEDICARE, BC, OTHER | LOC: COL.VAS 13:02 | DX: J44.9 Chronic obstructive pulmonary disease, unspecified (principal); I51.7 Cardiomegaly; I34.0 Nonrheumatic mitral (valve) insufficiency ==

== ENCOUNTER → 2022-01-24 | Outpatient (CLI) | payer MEDICARE, BC, OTHER | LOC: COL.RAD 09:07 | DX: C34.90 Malignant neoplasm of unspecified part of unspecified bronchus or lung (principal); I51.7 Cardiomegaly; R09.89 Other specified symptoms and signs involving the circulatory and respiratory systems | CPT/HCPCS: Q9967 ==

== ENCOUNTER → 2022-04-18 | Outpatient (CLI) | payer MEDICARE, BC, OTHER ==
[2022-04-18 09:18] LABS: BASO % 0.4 % (0.0-2.0); EOS # 0.2 K/mm3 (0.0-0.7); EOS % 1.8 % (0.0-4.0); GRAN # 7.1 K/mm3 (1.4-6.5); GRAN % 83.1 % (42.2-75.2); LYMPH # 0.6 K/mm3 (1.2-3.4); LYMPH % 6.9 % (20.0-51.0); MEAN CELL VOLUME 71 fl (80.0-100.0); MEAN CORPUSCULAR HGB CONC 29 g/dl (33.0-37.0); MEAN PLATELET VOLUME 9.9 fl (7.4-10.4); MONO # 0.6 K/mm3 (0.1-0.6); MONO % 7.3 % (1.7-9.3); PLATELET COUNT 377 K/mm3 (130-400); REDCELL DISTRIBUTION WIDTH-CV 15.9 % (11.5-14.5)
[2022-04-18 09:20] LABS: HEMATOCRIT 27.7 % (42.0-52.0); HEMOGLOBIN 7.9 g/dl (13.5-18.0); MEAN CORPUSCULAR HEMOGLOBIN 20 pg (27-31)
== END ==
LOC: COL.LAB 08:37
PROVIDERS: Family Medicine
DX: D64.9 Anemia, unspecified (principal)

== ENCOUNTER 2023-07-09 08:27 | Inpatient (IN) | payer MEDICARE, BC, OTHER ==
[~2023-07-09] VITALS: Ht 188 cm; Wt 83.5 kg
[2023-07-09] VITALS (769 sets, daily range): BP systolic 148; BP diastolic 87; PULSE 38–51; TEMP 98.5; O2SAT 78–100
[~2023-07-09 08:27] MED LIST changes: +ATARAX 25MG25 MG/TAB PO; +BROVANA15 MCG/2 M IH; +FERROUS SU325 MG/TAB PO; +MELATONIN5 M1 SL; +PERCOCET 325 MG1 TA2 PO; +PREDNISONE10 MG PO; +PROZAC 10MG10 MG PO; +PULMICORT0.5 MG/2 M IH; -RISPERDAL 1M1 MG/TAB PO; +RISPERDAL2 MG PO; +ZITHROMAX 250M250 MG PO; +[UNRECOGNIZED DRUG - OTHER]; +[UNRECOGNIZED DRUG - OTHER] PO
[2023-07-09] MEDS ORDERED: NS 1,000 ML IV ONE ×2 (08:45→09:30)
[2023-07-09 08:51] LABS: BASO % 0.3 % (0.0-2.0); GRAN # 14.1 K/mm3 (1.4-6.5); GRAN % 88.5 % (42.2-75.2); HEMATOCRIT 50.5 % (42.0-52.0); HEMOGLOBIN 15.5 g/dl (13.5-18.0); LYMPH % 6.2 % (20.0-51.0); MEAN CELL VOLUME 85 fl (80.0-100.0); MEAN CORPUSCULAR HEMOGLOBIN 26 pg (27-31); MEAN CORPUSCULAR HGB CONC 31 g/dl (33.0-37.0); MEAN PLATELET VOLUME 9.6 fl (7.4-10.4); MONO # 0.7 K/mm3 (0.1-0.6); MONO % 4.4 % (1.7-9.3); PLATELET COUNT 353 K/mm3 (130-400); RED BLOOD COUNT 5.92 M/mm3 (4.20-5.60)
[2023-07-09] MEDS ORDERED: Cefepime 2 G in Water For Injection,Sterile 20 ML IV ONE (09:00)
[2023-07-09 09:05] LABS: ALBUMIN 3.5 gm/dL (3.4-4.8); BILIRUBIN,TOTAL 0.7 mg/dL (0.2-1.2); CALCIUM 10.1 mg/dL (8.4-10.2); CREATININE, serum 1.46 mg/dL (0.72-1.25); TOTAL PROTEIN 7.4 gm/dL (6.2-8.1)
[2023-07-09 09:08] LABS: ARTERIAL BLD GAS O2 SATURATION 94.2 % (92-100); ARTERIAL BLD GAS TCO2 CT 24.1; ARTERIAL BLOOD GAS BASE EXCESS -7.1 (-2-2); ARTERIAL BLOOD GAS HCO3 22.2 meq/L (22-26); ARTERIAL BLOOD GAS PO2 78.4 mmHg (80-100)
[2023-07-09 09:10] LABS: ARTERIAL BLOOD GAS pH 7.18 (7.35-7.45); COLLECTION METHOD CLEAN CATCH
[2023-07-09 09:27] LABS: URINE APPEARANCE Cloudy (CLEAR/HAZY); URINE GLUCOSE Negative (NEGATIVE); URINE KETONE Negative (NEGATIVE); URINE PROTEIN(semi-quant) 3+ (NEGATIVE); URINE UROBILINOGEN 0.2 E.U/dL (0.2-1.0)
[2023-07-09 09:28] LABS: URINE BACTERIA Moderate /hpf (NONE SEEN); URINE BLOOD 3+ (NEGATIVE); URINE NITRATE Positive (NEGATIVE); URINE RBC >50 /hpf (0-2)
[2023-07-09 09:29] LABS: URINE COLOR Straw (YELLOW)
[2023-07-09] MEDS ORDERED: Iohexol 350 - 100 ML VIAL IV ONE (09:35)
[2023-07-09] MEDS ORDERED: NS 100 ML IV SCH (09:36)
[2023-07-09] MEDS ORDERED: DOXYCYCLINE HY100 MG PO (09:48)
[2023-07-09] MEDS ORDERED: PREDNISONE10 MG PO (09:48)
[2023-07-09 10:09] LABS: SQUAMOUS EPITHELIAL None Seen /hpf (0-10)
[2023-07-09] MEDS ORDERED: ATROVENT I0.2 MG/1 M IH (10:27)
[2023-07-09] MEDS ORDERED: BROVANA15 MCG/2 M INH (10:28)
[2023-07-09] MEDS ORDERED: XARELTO20 MG PO (10:42)
[2023-07-09] MEDS ORDERED: *Potassium Replacement Protocol MC SCH (10:45)
[2023-07-09] MEDS ORDERED: Ondansetron 4 MG/2 ML VIAL IV ONE (10:45)
[2023-07-09] MEDS ORDERED: Furosemide 40 MG/4 ML VIAL IV ONE (11:00)
[2023-07-09] MEDS ORDERED: Doxycycline Hyclate 100 MG in NS 150 ML IV SCH (11:00)
[2023-07-09 11:13] LABS: ARTERIAL BLD GAS O2 SATURATION 91.1 % (92-100); ARTERIAL BLD GAS TCO2 CT 20.4; ARTERIAL BLOOD GAS BASE EXCESS -10.2 (-2-2); ARTERIAL BLOOD GAS HCO3 18.8 meq/L (22-26); ARTERIAL BLOOD GAS PCO2 53.6 mmHg (35-45); ARTERIAL BLOOD GAS PO2 66.2 mmHg (80-100)
[2023-07-09 11:14] LABS: ARTERIAL BLOOD GAS pH 7.16 (7.35-7.45)
[2023-07-09] MEDS ORDERED: dexAMETHasone 10 MG/ML VIAL IV SCH ×2 (11:15→13:00)
--- NOTE | 2023-07-09 11:15 | NUR ---
Report received from CARLOS Shafer; patient brought over from ED by CARLOS Shafer and lAberta RT. Patient was obtunded and largely unreponsive on arrival. Patient was on BiPAP at 45% FiO2 and there were no fluids or medications running through his peripheral INT. Patient was admitted with suprapubic catheter that per report is prone to infection. Patient was accompanied by his home health nurse, Magui, who was taken to the ICU waiting room until we had patient settled. Patient potentially needs to be intubated and Dr. Arana was consulted; cardiology was also consulted as patient was having episodes of bradycardia, dropping down into the 30s.
--- NOTE | 2023-07-09 11:15 | NUR ---
1115 - Patient's contact on face sheet Magui in waiting room. Patient continues to decline with the need for intubation. Magui states that she is his next of kin & can make decisions for the patient. Asked what relation she was to the patient & she stated "I know him better than anybody." Asked if she was related in any manner & she stated she was his urgent care. Asked if the patient had a legal DPOA; she stated a nephew in [place] & provided his contact information. Magui insists that the patient can make his own decisions & this RN advises at this time he could not so the DPOA would be contacted. 1125 - DPOA, Kelvin Neumann, called at [phone]. No answer, left message with call back number. Reviewed past medical record; additional name listed on DPOA, but the phone number is the same.
[2023-07-09] MEDS ORDERED: Rocuronium 50 MG/5 ML Multi-Dose VIAL IV ONE (11:43)
[2023-07-09] MEDS ORDERED: NS 1,000 ML IV SCH (12:00)
[2023-07-09] MEDS ORDERED: Atropine 1 MG/10 ML SYRINGE IV PRN (12:45)
[2023-07-09] MEDS ORDERED: Albuterol 0.083% Neb Soln 2.5 MG/3 ML UD IH PRN (12:45)
[2023-07-09] MEDS ORDERED: fentaNYL 100 ML IV SCH (12:45)
[2023-07-09] MEDS ORDERED: Midazolam 100 ML IV SCH (12:45)
[2023-07-09] MEDS ORDERED: Naloxone 0.4 MG/ML VIAL IV PRN (12:45)
[2023-07-09 12:56] LABS: ARTERIAL BLD GAS O2 SATURATION 99.1 % (92-100); ARTERIAL BLD GAS TCO2 CT 21.3; ARTERIAL BLOOD GAS BASE EXCESS -4.6 (-2-2); ARTERIAL BLOOD GAS HCO3 20.2 meq/L (22-26); ARTERIAL BLOOD GAS PCO2 36.6 mmHg (35-45); ARTERIAL BLOOD GAS pH 7.36 (7.35-7.45)
--- NOTE | 2023-07-09 13:00 | NUR ---
Per Dr. Arana, patient intubated by DINORAH Williamson. Time out done at 1140 and DINORAH Williamson gave propofol, 100 mg and Jimi, 50 mg at 1143. A size 8.0 ET tube was placed and there was color change at 1144; upon auscultation ET tube appeared to be in the correct spot at 23 at the teeth. An 16 Fr OG was placed and upon auscultation also appeared to be in the correct spot. CARLOS Funes, placed a PICC in the upper right arm immediately following intubation. X-ray was done to confirm placement of ET, OG, and PICC.
[2023-07-09] MEDS ORDERED: DOPamine/Dextrose 5%-Water 250 ML IV SCH (13:45)
[2023-07-09] MEDS ORDERED: Glucagon 1 MG VIAL IV ONE (13:45)
[2023-07-09] MEDS ORDERED: Albuterol/Ipratropium 3 MG-0.5 MG/3 ML Neb Soln IH SCH (14:00)
[2023-07-09] MEDS ORDERED: Cefepime 1 G in Water For Injection,Sterile 10 ML IV SCH (17:00)
--- NOTE | 2023-07-09 17:00 | NUR ---
Sedation vacation not done today as patient was newly intubated; patient was also only on minimal sedation and was responsive and following commands appropriately.
--- NOTE | 2023-07-09 18:50 | NUR ---
Per patient's DPOA, Kelvin Neumann, patient updates/information about patient may be given to Jenna Browne, patient's home health nurse, and Bienvenido Neumann, patient's brother; password was given.
[2023-07-09] MEDS ORDERED: Formoterol Neb Soln 20 MCG/2 ML UD IH SCH (19:00)
[2023-07-09] MEDS ORDERED: Budesonide Neb Susp 0.5 MG/2 ML AMP IH SCH (19:00)
--- NOTE | 2023-07-09 20:26 | NUR ---
PATIENT DOES NOT APPEAR TO BE IN ACUTE DISTRESS AT THIS TIME. ET TUBE AND OG IN PLACE. SUPRAPUBIC CATHETAR INTACT AND DRAINING - CATHETAR BAG REPLACED WITH BAG THAT HAS UROMETER. NONVIOLENT RESTRAINTS BEING USED AND EVALUATED APPROPRIATELY. PATIENT SEDATED ADEQUATELY. BLOOD-TINGED SECRETIONS BEING SUCTIONED OUT OF ET TUBE. MARIN DRAINAGE BEING PULLED FROM OG INTO SUCTION CANISTER. PATIENT'S COCCYX AND SCROTUM APPEAR RED BUT BLANCHABLE - NO OTER SKIN CONCERNS AT THIS TIME. PATIENT AROUSES TO PAIN AT THIS TIME. BED IN LOW POSITION AND PATIENT IN OBSERVABLE AREA.
[2023-07-09 20:48] LABS: ARTERIAL BLD GAS TCO2 CT 24.1; ARTERIAL BLOOD GAS BASE EXCESS 0.8 (-2-2); ARTERIAL BLOOD GAS HCO3 23.2 meq/L (22-26); ARTERIAL BLOOD GAS PCO2 31.4 mmHg (35-45); ARTERIAL BLOOD GAS PO2 73.7 mmHg (80-100); ARTERIAL BLOOD GAS pH 7.49 (7.35-7.45)
--- NOTE | 2023-07-09 21:30 | NUR ---
THIS RT DEC RESPIRATORY RATE ON VENTILATOR AT 2049, TO A RR OF 18. PT TOLERATING WELL HE IS ON SEDATION.
[2023-07-10] VITALS (1100 sets, daily range): BP systolic 102–149; BP diastolic 59–96; PULSE 52–81; TEMP 97.6–100.1; O2SAT 85–100
[2023-07-10 04:26] LABS: ARTERIAL BLD GAS O2 SATURATION 96.1 % (92-100); ARTERIAL BLOOD GAS BASE EXCESS -2.3 (-2-2); ARTERIAL BLOOD GAS HCO3 22.7 meq/L (22-26); ARTERIAL BLOOD GAS PCO2 40.2 mmHg (35-45); ARTERIAL BLOOD GAS PO2 74.4 mmHg (80-100); ARTERIAL BLOOD GAS pH 7.37 (7.35-7.45)
[2023-07-10 04:40] LABS: BASO % 0.2 % (0.0-2.0); EOS % 0.1 % (0.0-4.0); GRAN # 10.7 K/mm3 (1.4-6.5); GRAN % 85.5 % (42.2-75.2); HEMOGLOBIN 15.7 g/dl (13.5-18.0); LYMPH # 0.7 K/mm3 (1.2-3.4); LYMPH % 5.6 % (20.0-51.0); MEAN CELL VOLUME 81 fl (80.0-100.0); MEAN CORPUSCULAR HEMOGLOBIN 26 pg (27-31); MEAN CORPUSCULAR HGB CONC 32 g/dl (33.0-37.0); MONO # 0.9 K/mm3 (0.1-0.6); MONO % 7.4 % (1.7-9.3); PLATELET COUNT 368 K/mm3 (130-400); RED BLOOD COUNT 6.02 M/mm3 (4.20-5.60); REDCELL DISTRIBUTION WIDTH-CV 14.9 % (11.5-14.5)
--- NOTE | 2023-07-10 05:02 | NUR ---
PATIENT WAS ABLE TO SUSTAIN SEDATION VACATION WITH FENTANYL. IT APPEARS PATIENT WOULD NOT TOLERATE DECREASE IN VERSED.
[2023-07-10 05:03] LABS: ALBUMIN 3.1 gm/dL (3.4-4.8); CREATININE, serum 1.34 mg/dL (0.72-1.25); MAGNESIUM 1.5 mg/dL (1.6-2.6); PHOSPHOROUS 3.4 mg/dL (2.3-4.7); POTASSIUM 3.9 mmol/L (3.5-4.5)
[2023-07-10] MEDS ORDERED: Potassium Chloride 100 ML IV ONE (05:15)
--- NOTE | 2023-07-10 07:00 | NUR ---
REPORT RECIEVED FROM DANG GONZALEZ. PATIENT INTUBATED AND SEDATED. BILATERAL WRIST RESTRAINTS IN PLACE. ET TUBE 23CM AT GUMS. OG TUBE AT 60 CM. [address]PR[address] IN PLACE AND DRAINING; SOME URINE LEAKING FROM SITE. RIGHT UPPER PICC IN PLACE WITH MEDS INFUSING. PT SEDATED; RESPONDS TO PAINFUL STIMULI.
[2023-07-10] MEDS ORDERED: Heparin 5,000 UNITS/ML 1 ML VIAL SQ SCH (08:00)
[2023-07-10] MEDS ORDERED: Magnesium Sulfate 4% 50 ML IV ONE (09:00)
[2023-07-10] MEDS ORDERED: Insulin Aspart (NovoLOG) SQ SCH (09:32)
[2023-07-10] MEDS ORDERED: Glucagon 1 MG VIAL IM PRN (09:45)
[2023-07-10] MEDS ORDERED: Dextrose 50% Water 25 GM/50 ML SYRINGE IV PRN (09:45)
[2023-07-10] MEDS ORDERED: Dextrose (Glucose) 15 GM (4 x 3.75 GM) Chewable TABLET PACK PO PRN (09:45)
--- NOTE | 2023-07-10 13:57 | NUR ---
Pt taken to helper animal laboratory at this time for pacemaker insertion. Pt accompanied by this nurse, CARLOS Cueva, and Alberta DUONG. This nurse stayed with patient through out procedure. Pt tolerated well and had no acute events. Pt returned to room at approx. 1601. Pt's family updated. Ice pack applied to insertion site. Vital signs within normal limits. Pt AV paced with a rate of 80.
--- NOTE | 2023-07-10 14:32 | NUR ---
Refer to [employer] report for procedural sedation/notes
[2023-07-10] MEDS ORDERED: NS 1,000 ML IV.SOLN. IR SCH (14:37)
--- NOTE | 2023-07-10 16:06 | NUR ---
Pt back to ICU 5 - PPM insertion site dressing reviewed together with CARLOS Pardo. Pt tolerated transfer to and from [facility] without complications. ETT remains at 24cm @ lip. q15min vitals initiated and reviewed. Family at bedside - all questions answered.
--- NOTE | 2023-07-10 17:14 | NUR ---
SEDATION VACATION NOT NECESSARY AT THIS TIME; PT WAKES AND FOLLOWS COMMANDS APPROPRIATELY.
--- NOTE | 2023-07-10 17:44 | NUR ---
Patient is intubated and unable to communicate at this time. SW attempted to contacted patient's DPOA-HC, Kelvin, P# [phone]. No answer, left voicemail. SW attempted to contact DPOA-HC, Kelvin. No answer. Left voicemail. SW contacted ABEL Warren-FRANCISCO. Kelvin expressed it would be best to contact patient's home care person, Magui, P# [phone], as she would know answers to the questions she was asking. SW contacted Magui. Magui confirmed PCP is at [facility], it was Dr. Del Angel but he recently left and she was not certain on his new one. Pharmacy is [facility] [place], no issues with affording medications. INsurance is Medicare A&B, BCBS [employer], [employer]. DPOA-HC is Kelvin then Sonal as secondary, DPOA-HC is on file. DME is a walker, cane and nebulizer. Magui reports he is unsteady on his feet and currently receives 11 hours a week for her services [facility]. She said that consists of 2 showers a week and 7 hours of cleaning and house services. Magui also transports him to and from appointments, picks up his medications and she [facility] to [facility] [place] who is able to sort out all of his medications for the month as she is unable to do so. Discharge plan: TBD
--- NOTE | 2023-07-10 19:15 | NUR ---
Received report from CARLOS Pardo. Pt is intubated and lying in bed with versed and fentanyl running. Pt also has IVF running at this time. Pt has tube feeds running at this time through the OG at starting rate, 20 ml/hr. Hodge has no kninks in tubing and is draining. SCD's are on at this time. Pt's vitals are stable at this time. Pt is in A-Paced rhythm with rate siiting in 70's-80's. Pt left upper chest site from the pacemaker placement is clean, dry, and intact iwth no hematoma felt. Will continue with pt care.
[2023-07-11] VITALS (999 sets, daily range): BP systolic 97–135; BP diastolic 64–86; PULSE 80–84; TEMP 98–99.2; O2SAT 94–100
[2023-07-11 04:56] LABS: ARTERIAL BLD GAS TCO2 CT 22.9; ARTERIAL BLOOD GAS BASE EXCESS -1.7 (-2-2); ARTERIAL BLOOD GAS HCO3 21.8 meq/L (22-26); ARTERIAL BLOOD GAS PCO2 33.8 mmHg (35-45); ARTERIAL BLOOD GAS PO2 78.9 mmHg (80-100); ARTERIAL BLOOD GAS pH 7.43 (7.35-7.45)
[2023-07-11 05:23] LABS: BASO % 0.1 % (0.0-2.0); EOS % 0.2 % (0.0-4.0); GRAN # 8.9 K/mm3 (1.4-6.5); GRAN % 84.7 % (42.2-75.2); HEMATOCRIT 44.6 % (42.0-52.0); LYMPH # 0.6 K/mm3 (1.2-3.4); LYMPH % 5.7 % (20.0-51.0); MEAN CELL VOLUME 85 fl (80.0-100.0); MEAN CORPUSCULAR HEMOGLOBIN 26 pg (27-31); MEAN CORPUSCULAR HGB CONC 30 g/dl (33.0-37.0); MEAN PLATELET VOLUME 9.3 fl (7.4-10.4); MONO # 0.9 K/mm3 (0.1-0.6); MONO % 8.3 % (1.7-9.3); PLATELET COUNT 301 K/mm3 (130-400); RED BLOOD COUNT 5.24 M/mm3 (4.20-5.60); REDCELL DISTRIBUTION WIDTH-CV 15.1 % (11.5-14.5)
[2023-07-11 05:30] LABS: HEMOGLOBIN 13.5 g/dl (13.5-18.0)
[2023-07-11 05:40] LABS: ALBUMIN 2.6 gm/dL (3.4-4.8); CALCIUM 9.9 mg/dL (8.4-10.2); CREATININE, serum 1.31 mg/dL (0.72-1.25); MAGNESIUM 2.1 mg/dL (1.6-2.6); PHOSPHOROUS 2.7 mg/dL (2.3-4.7)
--- NOTE | 2023-07-11 05:56 | NUR ---
During the bed bath that was given at the beginning of the shift the pt woke up and was not able to be calmed down, had to increase sedation due to pt not following commands and unable to commprend what the nurse was saying to him. Sedation vacation was done at the beginning of the shift.
--- NOTE | 2023-07-11 06:01 | NUR ---
Pt had an uneventful night. Pt's vitals were stable throuhgout the night. Pt has a AV-paced rhythm that sits 70's-80's. Pt's left upper chest, pacemaker site/dressing looks clean, dry, and intact, with no hematoma present. Pt is intubated and resting in bed. Pt does not follow commands but opens eyes upon painful stimuli. Pt has fentanyl and versed and IVF running at this time. Pt has a suprapubic cathater and urine output has been adequate. Will give report to day shift nurse.
--- NOTE | 2023-07-11 07:00 | NUR ---
REPORT RECEIVED FROM CARLOS HUDDLESTON. PT ON VENTILATOR; 8.0 ETT MEASURING 23 AT [facility], AC MODE, TV 500, PEEP 5, FIO2 45%, RATE 18. OG TUBE IN PLACE MEASURING 58 AT [facility], PIVOT INFUSING AT 35ML/HR. SEDATION INFUSING TO R UPPER ARM PICC, SITE WNL. SUPRAPUBIC CATHETER IN PLACE, SITE WNL.
[2023-07-11] MEDS ORDERED: Heparin 5,000 UNITS/ML 1 ML VIAL SQ SCH (08:00)
[2023-07-11] MEDS ORDERED: LR 1,000 ML IV SCH (09:45)
[2023-07-11] MEDS ORDERED: Insulin Aspart (NovoLOG) SQ SCH (12:00)
--- NOTE | 2023-07-11 14:01 | NUR ---
Data: Ticker Wirer visit during Ticker Wirer rounds. Assessment: Patient is intubated and sleeping. Plan of Care: Ticker Wirer prayed for Patient.
--- NOTE | 2023-07-11 17:38 | NUR ---
CAMILLE notes patient is still currently intubated. CAMILLE notes PT is recommending SNF for patient. CAMILLE attempted to contact GRACE Warren. No answer. CAMILLE presented Medicare.gov list of options to patient and left the copy in the patient's room. CAMILLE will follow up. Discharge plan: SNF
--- NOTE | 2023-07-11 19:05 | NUR ---
Received report from CARLOS Tapia. Pt is intubated and resting in bed. Pt has fentanyl, versed, and IVF running at this time. Pt's tube feeds are running at 50 ml/hr through the OG. Pt's vitals are stable at this time. Pt's suprapubic tubing has no kinks and urine is draining. Pt does not look in distress at this time. Will continue with pt care.
[2023-07-12] VITALS (910 sets, daily range): BP systolic 106–135; BP diastolic 65–82; PULSE 80; TEMP 98.5–99.7; O2SAT 75–100
[2023-07-12 04:00] LABS: BASO % 0.1 % (0.0-2.0); GRAN # 8.7 K/mm3 (1.4-6.5); GRAN % 89.3 % (42.2-75.2); HEMATOCRIT 44.2 % (42.0-52.0); HEMOGLOBIN 13.2 g/dl (13.5-18.0); LYMPH # 0.3 K/mm3 (1.2-3.4); LYMPH % 3.4 % (20.0-51.0); MEAN CELL VOLUME 86 fl (80.0-100.0); MEAN CORPUSCULAR HEMOGLOBIN 26 pg (27-31); MEAN CORPUSCULAR HGB CONC 30 g/dl (33.0-37.0); MEAN PLATELET VOLUME 9.1 fl (7.4-10.4); MONO # 0.6 K/mm3 (0.1-0.6); MONO % 5.9 % (1.7-9.3); PLATELET COUNT 270 K/mm3 (130-400); RED BLOOD COUNT 5.15 M/mm3 (4.20-5.60); REDCELL DISTRIBUTION WIDTH-CV 15.2 % (11.5-14.5)
[2023-07-12 04:21] LABS: ALBUMIN 2.3 gm/dL (3.4-4.8); CALCIUM 9.2 mg/dL (8.4-10.2); CREATININE, serum 1.31 mg/dL (0.72-1.25); MAGNESIUM 1.8 mg/dL (1.6-2.6); PHOSPHOROUS 2.7 mg/dL (2.3-4.7); POTASSIUM 4.3 mmol/L (3.5-4.5)
[2023-07-12 05:14] LABS: ARTERIAL BLD GAS O2 SATURATION 96.8 % (92-100); ARTERIAL BLD GAS TCO2 CT 24.1; ARTERIAL BLOOD GAS PCO2 36.4 mmHg (35-45); ARTERIAL BLOOD GAS PO2 90.5 mmHg (80-100); ARTERIAL BLOOD GAS pH 7.42 (7.35-7.45)
--- NOTE | 2023-07-12 06:03 | NUR ---
Did not do sedation vacation this morning. When repositioning pt around 0600 the pt woke up and was trying to sit up and alarming the vent. The pt was coughing on the vent and was not able to be calmed down. Pt does not follow commands. Will pass onto day shift.
--- NOTE | 2023-07-12 06:09 | NUR ---
Pt had an uneventful night. Pt's vitals were stable throughout the night. Pt is able to wake with painful stimuli but does not follow commands. Pt has versed, fentanyl, and IVF running at this time. Pt has tube feeds running at goal rate 65 nl/hr through the OG. Pt is intubated and resting in bed. Pt has a suprapubic catheter with the tubing not kinked and urine drains. Pt had adequate urine output. Will give report to day shift nurse.
[2023-07-12] MEDS ORDERED: dexAMETHasone 4 MG TAB PO SCH (09:05)
--- NOTE | 2023-07-12 18:38 | NUR ---
SEDATION VACATION NOT DONE AT THIS TIME. PT TO BE WEANED OFF SEDATION IN AM FOR CPAP TRIAL. URINE CONTINUES TO LEAK AROUND SUPRAPUBIC WALLACE SITE. DRAIN SPONGES PUT IN PLACE AND CHANGED HOURLY.
[2023-07-12] MEDS ORDERED: Lithium 150 MG CAP PO SCH (21:00)
--- NOTE | 2023-07-12 22:48 | NUR ---
Received report from CARLOS Tapia. Pt is intubated and lying in bed. Pt's vitals are stable at this time. Pt on versed and fentanyl. Pt on tube feeds at goal rate through the OG. Pt has a suprapubic catheter with no kinks in tubing and urine draining. Will continue with pt care.
[2023-07-13] VITALS (958 sets, daily range): BP systolic 100–142; BP diastolic 67–87; PULSE 80; TEMP 98.8–99.3; O2SAT 89–100
[2023-07-13 04:01] LABS: HEMATOCRIT 46.6 % (42.0-52.0); HEMOGLOBIN 14.1 g/dl (13.5-18.0); MEAN CELL VOLUME 86 fl (80.0-100.0); MEAN CORPUSCULAR HEMOGLOBIN 26 pg (27-31); MEAN CORPUSCULAR HGB CONC 30 g/dl (33.0-37.0); PLATELET COUNT 270 K/mm3 (130-400); RED BLOOD COUNT 5.45 M/mm3 (4.20-5.60); REDCELL DISTRIBUTION WIDTH-CV 15.4 % (11.5-14.5)
[2023-07-13 04:38] LABS: ALBUMIN 2.3 gm/dL (3.4-4.8); BILIRUBIN,TOTAL 0.4 mg/dL (0.2-1.2); CALCIUM 9.4 mg/dL (8.4-10.2); CREATININE, serum 1.23 mg/dL (0.72-1.25); MAGNESIUM 1.8 mg/dL (1.6-2.6); PHOSPHOROUS 2.4 mg/dL (2.3-4.7); POTASSIUM 4.3 mmol/L (3.5-4.5); TOTAL PROTEIN 5.7 gm/dL (6.2-8.1)
[2023-07-13 05:30] LABS: ANISOCYTOSIS 1+; BAND 2 % (0-10); LYMPHOCYTE 4 % (20.0-51.0); NEUTROPHILS 89 % (42.0-75.2); PLATELET ESTIMATE NORMAL (NORMAL)
[2023-07-13 05:31] LABS: OVALOCYTES 1+
--- NOTE | 2023-07-13 05:39 | NUR ---
Sedation vacation not done. Weaning pt off of sedation meds for CPAP and PS trial at 0600 this morning.
--- NOTE | 2023-07-13 06:43 | NUR ---
Pt had an uneventful night. Pt is intubated and alert at this time. Pt is on spontaneous trial at this time. Pt's vitals are stable at this time and have been stable throughout the night. Pt is off sedation meds. Tube feeds were turned off at 0300. Pt did not follow commands throughout the night, but at 0620 the pt was able to follow commands and squeezed this nurse's hands equally. Pt has a suprapubic catheter in place with no kinks in the tubing and urine draining. Pt had adequated urine output. Will give report to day shift nurse.
[2023-07-13 07:35] LABS: ARTERIAL BLD GAS O2 SATURATION 95.5 % (92-100); ARTERIAL BLD GAS TCO2 CT 24.7; ARTERIAL BLOOD GAS BASE EXCESS -1.5 (-2-2); ARTERIAL BLOOD GAS HCO3 23.4 meq/L (22-26); ARTERIAL BLOOD GAS PCO2 40.5 mmHg (35-45); ARTERIAL BLOOD GAS pH 7.38 (7.35-7.45)
--- NOTE | 2023-07-13 10:48 | NUR ---
drop pit worker left a message to GRACE Warren to discuss SNF reccomendation. CAMILLE left a voicemail to Magui caregiver from [facility] in [place]. CAMILLE spoke with Magui in the patient's room when she arrived. CAMILLE discussed the Medicare.gov list provided by CAMILLE on Thursday. Magui reports she saw it and immediately went into explaining how they would want outpatient PT. CAMILLE provided PT's reccomendation and reasoning at this time. She reports, pt would like to be home and do rehab and go home. Magui would want pt to go to [facility] for Outpatient PT. She would drive him to appointments. CAMILLE provided she will note this and continue to monitor based on when pt is extubated. This is planned for tomorrow. OT pending at this time. Discharge Plan: sha
--- NOTE | 2023-07-13 11:48 | NUR ---
PATIENT RESTING IN BED. ALL IV DRIPS HAVE BEEN STOPPED AND PATIENT IS ON A SPONT BREATHING TRIAL. PT HAS ON OG TUBE, CLAMPED AND ALL TF STOPPED FOR SBT. PT WITH A SUPRAPUBIC CATH IN PLACE AND DRAINING. PT DOES RESPOND TO VOICE, SLOW TO FOLLOW COMMANDS AT THIS TIME.
[2023-07-13] MEDS ORDERED: Insulin Aspart (NovoLOG) SQ SCH (12:00)
--- NOTE | 2023-07-13 17:58 | NUR ---
PATIENT WAS PLACED ON A SEDATION VACATION THIS AM ALONG WITH THE SBT. DURING THIS TIME THE PATIENT WOULD AWAKEN APPROPRIATELY AND FOLLOW COMMANDS.
[2023-07-14] VITALS (51 sets, daily range): BP systolic 122–157; BP diastolic 86–103; PULSE 80–82; TEMP 97.8–99.3; O2SAT 94–100
--- NOTE | 2023-07-14 | NUR ---
TUBE FEEDS HELP DUE TO POSSIBLE WEENING TRIAL IN AM.
--- NOTE | 2023-07-14 03:51 | NUR ---
SMALL BLOOD TINGED THICK SECRETIONS SXN'D FROM ETT.
[2023-07-14 04:30] LABS: HEMOGLOBIN 14.5 g/dl (13.5-18.0); MEAN CELL VOLUME 84 fl (80.0-100.0); MEAN CORPUSCULAR HEMOGLOBIN 26 pg (27-31); MEAN CORPUSCULAR HGB CONC 31 g/dl (33.0-37.0); MEAN PLATELET VOLUME 9.1 fl (7.4-10.4); PLATELET COUNT 288 K/mm3 (130-400); REDCELL DISTRIBUTION WIDTH-CV 15.4 % (11.5-14.5)
[2023-07-14 05:21] LABS: ALBUMIN 2.6 gm/dL (3.4-4.8); CALCIUM 9.9 mg/dL (8.4-10.2); CREATININE, serum 1.22 mg/dL (0.72-1.25); POTASSIUM 4.4 mmol/L (3.5-4.5)
[2023-07-14 05:25] LABS: BAND 2 % (0-10); LYMPHOCYTE 6 % (20.0-51.0); METAMYELOCYTE 2 % (0-0); NEUTROPHILS 84 % (42.0-75.2)
[2023-07-14 05:26] LABS: ANISOCYTOSIS 1+; PLATELET ESTIMATE NORMAL (NORMAL)
--- NOTE | 2023-07-14 07:00 | NUR ---
PT INTUBATED AND SEDATED. PT CURRENTLY ON BREATHING TRIAL WITH MINIMAL SEDATION. BILATERAL WRIST RESTRAINTS IN PLACE. ET TUBE AT 23 AT TEETH. OG AT 58. PICC LINE TO RIGHT UPPER ARM. SUPRAPUBIC CATHETER DRAINING; URINE LEAKS AROUND SITE, KNOWN CHRONIC PROBLEM. PT WAKES WITH EASE BUT IS UNABLE TO FOLLOW COMMANDS.
[2023-07-14 07:49] LABS: ARTERIAL BLD GAS O2 SATURATION 96.8 % (92-100); ARTERIAL BLD GAS TCO2 CT 26.5; ARTERIAL BLOOD GAS BASE EXCESS 0.5 (-2-2); ARTERIAL BLOOD GAS HCO3 25.2 meq/L (22-26); ARTERIAL BLOOD GAS PCO2 41.2 mmHg (35-45); ARTERIAL BLOOD GAS pH 7.41 (7.35-7.45)
[2023-07-14] MEDS ORDERED: D5W 1,000 ML IV SCH (10:00)
--- NOTE | 2023-07-14 10:25 | NUR ---
PATIENT EXTUBATED BY AD HE AT THIS TIME. OG ALSO REMOVED. PATIENT TOLERATED WELL. INTIALLY TACHYPNEIC WITH A RATE IN THE UPPER 30'S BUT DID COME DOWN TO LOW 30'S. PATIENT REMAINS DROWSY BUT COGNITION HAS IMPROVED. PATIENT FAMILY AND CAREGIVER AWARE.
--- NOTE | 2023-07-14 10:37 | NUR ---
PT EXTUBATED TO 4L/MC NO COMPLICATIONS. WILL CONTINUE TO OBSERVE FOR INCREASED WORK OF BREATHING. RESP RATE AT THIS TIME IN 30'S.
--- NOTE | 2023-07-14 11:47 | NUR ---
pitch worker let a voicemail to [facility], Kelvin. Kelvin later then called SW back to discuss discharge planning. SW informed him that patient is now extubated and will be in ICU for monitoring, then will transfer to medical floor once stable. SW discussed current reccomendation from PT regarding SNF. Sen went on to say he would be agreeable as [facility] for first choice, then [facility] as second. He understood it would be for a short rehab stay, not long-term. SW provided all options as Home with Home Health, AL, or LTC. Sen informed SW they pay $5-6,000 a month for private duty services from [facility] in [place] (Magui.) He reports they have discussed pt selling his home and moving to Assisted Living before, but acknowledges that this will be discussed again as a family unit. He reports he would not want to send pt to [facility] at all. 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 SW provided there is no urgent need to come at this time, but may be beneficial at a later time for discharge planning. CAMILLE provided there is a SW on medical floor to further discuss. Sen was agreeable to SNF for pt and SW states they will talk with pt more once he's more alert. Discharge Plan: tbd, OT pending
--- NOTE | 2023-07-14 17:10 | NUR ---
SEDATION VACATATION NOT NEEDED AT THIS TIME. PT WAS OFF SEDATION FOR MAJORITY OF SHIFT AND WAS ABLE TO FOLLOW COMMANDS WITH EASE.
--- NOTE | 2023-07-14 20:24 | NUR ---
PT ENDORSES COUGH.
[2023-07-15] VITALS (231 sets, daily range): BP systolic 134–156; BP diastolic 77–102; PULSE 80–83; TEMP 97.9–99.4; O2SAT 94–100
--- NOTE | 2023-07-15 01:37 | NUR ---
PATIENT DOES NOT APPEAR TO BE IN DISCOMFORT OR DISTRESS. PATIENT ALERT AND ORIENTED AND PLEASANT. ABLE TO CONVERSE WITH STAFF APPROPRIATELY. SUPRAPUBIC CATHETAR INTACT AND PATENT. SCDS ON AND O2 AT 2L NASAL CANNULA. BED IN LOW POSITION AND CALL LIGHT WITHIN REACH. PATIENT DOES NOT HAVE ANY QUESTIONS CONCERNS OR NEEDS AT THIS TIME.
--- NOTE | 2023-07-15 07:00 | NUR ---
REPORT RECEIVED FROM CARLOS LEONG. PT RESTING IN BED, VSS ON 2L O2 PER NC. SUPRAPUBIC WALLACE IN PLACE TO DEPENDENT DRAINAGE. FLUIDS INFUSING TO PICC LINE ORDERED. PT ALERT AND ORIENTED, CALL LIGHT IN REACH.
[2023-07-15 09:21] LABS: BASO % 0.2 % (0.0-2.0); EOS # 0.4 K/mm3 (0.0-0.7); EOS % 3.8 % (0.0-4.0); GRAN # 9.8 K/mm3 (1.4-6.5); GRAN % 84.2 % (42.2-75.2); HEMATOCRIT 44.7 % (42.0-52.0); HEMOGLOBIN 13.2 g/dl (13.5-18.0); LYMPH # 0.6 K/mm3 (1.2-3.4); LYMPH % 4.8 % (20.0-51.0); MEAN CELL VOLUME 87 fl (80.0-100.0); MEAN CORPUSCULAR HEMOGLOBIN 26 pg (27-31); MEAN CORPUSCULAR HGB CONC 30 g/dl (33.0-37.0); MEAN PLATELET VOLUME 9.2 fl (7.4-10.4); MONO # 0.7 K/mm3 (0.1-0.6); MONO % 5.9 % (1.7-9.3); PLATELET COUNT 221 K/mm3 (130-400); RED BLOOD COUNT 5.13 M/mm3 (4.20-5.60); REDCELL DISTRIBUTION WIDTH-CV 15.1 % (11.5-14.5)
[2023-07-15 09:41] LABS: ALBUMIN 2.4 gm/dL (3.4-4.8); BILIRUBIN,TOTAL 0.9 mg/dL (0.2-1.2); CALCIUM 9.2 mg/dL (8.4-10.2); CREATININE, serum 1.22 mg/dL (0.72-1.25); POTASSIUM 3.4 mmol/L (3.5-4.5); TOTAL PROTEIN 5.6 gm/dL (6.2-8.1)
[2023-07-15 11:02] LABS: CALCIUM 10.1 mg/dL (8.4-10.2); CREATININE, serum 1.05 mg/dL (0.72-1.25); POTASSIUM 3.9 mmol/L (3.5-4.5)
--- NOTE | 2023-07-15 11:19 | NUR ---
animal shelter worker noted during rounds that patient will potentially transfer to medical floor today. CAMILLE recieved a call from caregiver, Magui stating that patient would like to go [facility]. CAMILLE provided she spoke with Sen regarding this, but not yet with patient. SW provided Kelvin also chose [facility] in discussion, if [facility] is full. Magui verbalized understanding. CAMILLE provided CAMILLE Audelia is on the medical floor and will follow the transiton. CAMILLE Sutherland faxed referral to [facility] and [facility]. Discharge Plan: transfer to medical floor
[2023-07-15 16:29] LABS: INR 1.2 (0.8-3.0); PROTHROMBIN TIME 12.9 SECONDS (9.7-12.8)
--- NOTE | 2023-07-15 16:30 | NUR ---
well service derrick worker recived a call from Brandon GONCALVES reporting they will review the referral. Brandon questioned when patient could discharge. CAMILLE provided he is in the ICU and will transfer to the medical floor in the coming days. CAMILLE provides the PT reccomendation was for SNF. Brandon verbalized understanding.
--- NOTE | 2023-07-15 19:12 | NUR ---
154 PACE MAKER SITE TO L UPPER CHEST NOTED TO BE MORE SWOLLEN, DRESSING REMOVED, SMALL AMOUNT OF BRIGHT RED BLOOD NOTE TO INCISION. DR PINTO NOTIFIED. DR PINTO INSTRUCTED NURSE TO HOLD PRESSURE FOR 20 MIN, PUT ON ICE PACK, AND PRESSURE DRESSING. SWELLING SLIGHTLY BETTER BUT STILL PRESENT. 1899 SWELLING TO PACEMAKER SITE NOTED TO BE WORSE THAN EARLIER TODAY. DR PINTO NOTIFIED. DR PINTO NOTIFIED NURSE TO USE SAND BAG, ICE, AND APPLY ANOTHER PRESSURE DRESSING.
--- NOTE | 2023-07-15 19:30 | NUR ---
PT IS AWAKE RESTING IN BED, AXO, IN GOOD SPIRITS. VITALS WNL. PT HAS LARGE HEMATOMA WHERE HIS NEW PACEMAKER WAS PLACED. CURRENTLY HAVE ICE AND SANDBAG ON. PT REPORTS PAIN WHEN PRESSING ON IT. DAY SHIFT RN STATED SHE CALLED FIRE PROTECTION FABRICATOR AND NO NEW ORDERS WERE MADE. PLAN OF CARE TO CONTINUE.
[2023-07-16] VITALS (1028 sets, daily range): BP systolic 138–145; BP diastolic 80–88; PULSE 69–80; TEMP 97.9–98.7; O2SAT 84–100
--- NOTE | 2023-07-16 05:51 | NUR ---
PT HAD UNEVENTFUL NIGHT, HOWEVER AROUND 10MIN AGO I NOTICED HIS WORK OF BREATHING INCREASE, AND WHEEZES IN HIS LUNGS SEEMED LOUDER. SATURATIONS 95% AND ABOVE. I DID NOTIFY RT, AND THEY CAME IN ASSESS AND GIVE A TREATMENT. PTS HEMATOMA ON PACER INSERTION SITE STILL PRETTY LARGE, HOWEVER IT HAS GONE DOWN IN SIZE, AND IS NOT HARD TO THE TOUCH. A 2LB WEIGHT PRESSURE DRESSING HAS BEEN APPLIED THROUGHOUT THE NIGHT. PLAN OF CARE TO CONTINUE.
[2023-07-16 08:11] LABS: HEMOGLOBIN 14.7 g/dl (13.5-18.0); MEAN CELL VOLUME 84 fl (80.0-100.0); MEAN CORPUSCULAR HEMOGLOBIN 26 pg (27-31); MEAN CORPUSCULAR HGB CONC 31 g/dl (33.0-37.0); MEAN PLATELET VOLUME 9.3 fl (7.4-10.4); PLATELET COUNT 276 K/mm3 (130-400); RED BLOOD COUNT 5.63 M/mm3 (4.20-5.60)
[2023-07-16 08:20] LABS: CREATININE, serum 1.01 mg/dL (0.72-1.25); POTASSIUM 3.7 mmol/L (3.5-4.5)
[2023-07-16] MEDS ORDERED: Potassium Chloride 100 ML IV SCH (09:15)
--- NOTE | 2023-07-16 14:45 | NUR ---
Received phone order from Dr. Chang to apply pressure dressing or safeguard to PPM insert site. Safeguard applied, at approximately 1440 inflated with 40ml air. Received phone order from Dr. Chang that safeguard is to be left in place until 0800 and then air is to be removed in similar fashion at which time as long as the hematoma has improved air can be removed slowly. Should insertion site hematoma worsen, or for safeguard instructions please call lab engineer [phone] for further compression dressings.
--- NOTE | 2023-07-16 16:01 | NUR ---
salvage worker was notified by [facility] that they can accept patient. [facility] reports they did not recieve it. SW Student refaxed this. CAMILLE sent clinical updates to both facilities. Discharge Plan: SNF
[2023-07-16] MEDS ORDERED: Acetaminophen 500 MG TAB PO PRN (16:15)
--- NOTE | 2023-07-16 19:15 | NUR ---
RECEIVED REPORT FROM CARLOS PADGETT.
--- NOTE | 2023-07-16 20:30 | NUR ---
PATIENT RESTING QUIETLY IN BED. BROTHER AT BEDSIDE. VITALS WITHIN NORMAL LIMITS. CONTINUES TO RECEIVE 2L OXYGEN VIA NASAL CANNULA. PT DENIES ANY PAIN OR DISCOMFORT. NO FURTHER NEEDS NOTED AT THIS TIME.
[2023-07-17] VITALS (887 sets, daily range): BP systolic 129–149; BP diastolic 56–86; PULSE 70–92; TEMP 98.1–99; O2SAT 81–100
[2023-07-17 04:42] LABS: BASO % 0.2 % (0.0-2.0); EOS # 0.3 K/mm3 (0.0-0.7); EOS % 2.1 % (0.0-4.0); GRAN % 84.1 % (42.2-75.2); HEMATOCRIT 48.7 % (42.0-52.0); HEMOGLOBIN 14.9 g/dl (13.5-18.0); LYMPH # 0.9 K/mm3 (1.2-3.4); LYMPH % 5.8 % (20.0-51.0); MEAN CELL VOLUME 84 fl (80.0-100.0); MEAN CORPUSCULAR HEMOGLOBIN 26 pg (27-31); MEAN CORPUSCULAR HGB CONC 31 g/dl (33.0-37.0); MEAN PLATELET VOLUME 9.1 fl (7.4-10.4); MONO % 6.4 % (1.7-9.3); PLATELET COUNT 286 K/mm3 (130-400); RED BLOOD COUNT 5.77 M/mm3 (4.20-5.60); REDCELL DISTRIBUTION WIDTH-CV 14.7 % (11.5-14.5)
[2023-07-17 05:00] LABS: CALCIUM 10.5 mg/dL (8.4-10.2); CREATININE, serum 0.87 mg/dL (0.72-1.25); POTASSIUM 3.9 mmol/L (3.5-4.5)
--- NOTE | 2023-07-17 07:00 | NUR ---
REPORT RECEIVED FROM CARLOS VALDES. PT RESTING IN BED, VSS ON 2L O2 PER NC. PICC TO R UPPER ARM WNL, NO DRIPS INFUSING AT THIS TIME. SUPRAPUBIC WALLACE IN PLACE TO DEPENDENT DRAINAGE. PT ALERT AND ORIENTED, USES CALL LIGHT FOR NEEDS.
[2023-07-17] MEDS ORDERED: dexAMETHasone 4 MG TAB PO SCH (09:00)
[2023-07-17] MEDS ORDERED: SYSTANE 0.4%-0.1 SOL OU (09:42)
[2023-07-17] MEDS ORDERED: Carboxymethylcellulose PF Ophth 0.4 ML DROPPERETTE OP PRN (09:45)
--- NOTE | 2023-07-17 15:30 | NUR ---
PATIENT CAME FROM ICU. PATIENT ALERT AND ORIENTED X3. PATIENT DENIES PAIN AT THIS TIME. PATIENT WITH NEPHEW AND CAREWORKER AT BEDSIDE. PATIENT ON 2L OF OXYGEN. PATIENT HAS A LEFT UPPER CHEST INCISION COVERED WITH STERI STRIPS AND INTACT, HEMATOMA EXTENDING FROM INCISION TO SURROUNDING AREA. PATIENT DENIES PAIN.PATIENT BUTTOCKS IS REDDENED MEPLEX ON IT. GROIN IS REDDENED. PATIENT HAS SUPRAPUBIC CATHETER AND URINE IS LIGHT YELLOW AND CLEAR. PATIENT CALL LIGHT WITHIN REACH. BED AT LOWEST POSITION. BED ALARM ON.
--- NOTE | 2023-07-17 15:37 | NUR ---
AIR REMOVED FROM SAFEGUARD COMPRESSION DEVICE TO L UPPER CHEST PACEMAKER INSERTION SITE BY DR PINTO DURING MORNING ROUNDS. SMALL AMOUNT OF SWELLING NOTED, AREA SURROUNDING SITE NOTED TO BE BRUISED. NO DRAINAGE NOTED TO INCISION. 1330 DRESSING TO SITE COMPLETELY REMOVED ORDERED BY DR PINTO. SITE HAS REMAINED STABLE, NO INCREASED SWELLING/BRUISING NOTED, NO DRAINAGE NOTED. 1525 PT TRANSFERRED TO TO TRANSFER TO MEDICAL FLOOR; PT REQUIRED MAX ASSIST FROM 2 STAFF MEMBERS, GAIT EXTREMELY WEAK. EXERCISE OXIMETRY ALSO DONE AT THIS TIME, PT DOES QUALIFY FOR 2L O2 PER NC. ALL PT BELONGINGS GATHERED BY NURSE AND PT FAMILY/CAREGIVER AND TAKEN TO ROOM 310.
--- NOTE | 2023-07-17 16:01 | NUR ---
sprinkler worker was informed by Dr. Johnson during rounding that pt can discharge today, just waiting for Cardiology to sign off. CAMILLE followed up with [facility] who reports they are full and can look into him next week if he's stable. CAMILLE spoke with Brandon at [facility] who could accept pt yesterday. Brandon requested updates and CAMILLE emailed these. Brandon then reported that their team went over the notes and "changed their mind due to his Schizo diagnosis." SW informed Director Zina. CAMILLE then spoke with Brandon on the phone who reports their COMPLAINT COORDINATOR Brit states they would need original documentation of his diagnosis of schizophrenia for a Level 2 PASSAR when going to SNF or LTC. Brandon could not provide any further clarification on if this is for all mental health diagnoses or just pt's current one disclosed. CAMILLE went in to speak with pt and caregiver, Magui was at bedside. CAMILLE went in with Dr. Johnson and explained the reccomendation of SNF from PT/OT. Magui began by putting her hand up and open toward and stating she needs to talk with Kelvin. SW asked why she was raising her hand at , if she had offended her in any way. Magui reports that shes from [place] and "that's how I am, I am sorry." SW went on to explain [facility] originally accepted pt, but now they no longer can accept. SW said she will follow up and inform Kelvin. SW later met with patient alone. Patient was agreeable to going to SNF and verified it was not LTC and he could return home. SW confirmed this. SW asked what other places he would be interested in and SW listed cities/facilites. Patient was agreeable to [place] as he has been there for [employer]. He reports he has been somewhere in [place] to visit previously. Pt reports he does not want [facility] as they wheeled patients's out and left them at the staff desk he reports, as his mother was there before. Pt was agreeable to [facility] and thought about [place], but was unsure as he has never been to that town. SW said she will provide Kelvin with an update. CAMILLE spoke with Kelvin ROMAN and provided an update that [facility] is not an option. SW informed him that pt chose [facility], [facility], and open to [facility]. Kelvin reports he is agreeable to this and declined wanting [place] if they could avoid it. CAMILLE went on to explain pt will have a test done to see if he qualifies for oxygen. Kelvin was hesitiant over the phone when SW mentioned [facility] Weiss in [place]. He reports, "That is closer to Magui, so I dont want Willie to be influenced." SW stated she did meet with pt alone and he chose this himself. SW went on to express concerns regarding Magui and her inappropriate behavior staff has observed in the hospital. CAMILLE expressed she was informed by many RN's and this SW that she has kissed patient, rubbed his arm, laid in the bed, and expressed strange personal choices regarding patient. Kelvin states "she is possessive, Willie has always had a mommy and now he found a new one in her." SW expressed staff found her behavior to be uncomfortable. Kelvin verbalized understanding and said they have had trouble with home health care in the past and "my mother wants nothing to do with him...It's all on me." CAMILLE states she has heard Kelvin express cutting Magui's hours as it costs $5-6,000 a month. Kelvin reports, "She wants her job, that is why she does not want Willie to go anywhere. But, I am fine with doing it. He has struggled with finances recently." CAMILLE stated that after SNF he can always get HH set up and covered by Medicare. CAMILLE discussed long-term care/ASL and how Medicaid is reccomended to cover room and board or else it is private pay. Kelvin reports he will now look into this further. CAMILLE reports she will keep him updated on placement. CAMILLE recieved a call from Magui, caregiver reporting they would also be interested in [place]. SW could hear pt and Magui discussing this. Pt was agreeable to [place]. CAMILLE sent referrals to [facility] [place], [facility], [place], [facility]. SW left voicemails to [facility] and did not hear back. CAMILLE spoke with [place] who reports they did not get it. CMAILLE refaxed. CAMILLE spoke with [facility] who can accept pt on Thursday. CAMILLE was informed by Felicia at [place] that they can accept pt tomorrow, but could not transport over the weekend. CAMILLE spoke with Kelvin and he accepted [place] after speaking with pt. He reports this is closer to him in the [place] area. He expressed concerns that his parents could not visit, but understood there are not many options. CAMILLE was informed by CARLOS Tapia that pt was not safe in a wheelchair when transferring to medical floor. CAMILLE passed this along to Kelvin who verbalized understanding. CAMILLE emailed with Felicia at [place] who was informed pt will need oxygen and EMS will transport. CAMILLE provided CAMILLE Correa's email and number for the weekend. Discharge Plan: [facility] tomorrow by EMS
--- NOTE | 2023-07-17 16:10 | NUR ---
GIULIANA AND CAREGIVER UNABLE TO VERIFY PATIENT HOME MEDS. VOICEMAIL LEFT FOR CALL BACK TO RN.
--- NOTE | 2023-07-17 17:08 | NUR ---
THIS RN RECIEVED CALL BACK FROM [facility], MED LIST REVIEWED WITH PHARMACIST DEA. MED REC COMPLETED. PER PHARMACIST GRANT RESUBMITTED FOR [facility] AND PHYSICIAN HAS NOT APPROVED YET.
[2023-07-17] MEDS ORDERED: Latanoprost 0.005% Ophth Soln 2.5 ML BOTTLE OP SCH (21:00)
[2023-07-18 03:33] VITALS: BP 126/85; PULSE 87; TEMP 97.5
[2023-07-18 07:36] VITALS: BP 137/77; PULSE 91; TEMP 97.4
--- NOTE | 2023-07-18 11:26 | NUR ---
Patient alert and oriented at baseline. Shift assessment complete this morning. PICC line patent. Suprapubic catheter intact and draining yellow/clear urine. Tolerating food and fluids. Stable on 2L O2. Voices no concerns other than discharge planning. SW preparing paperwork for transfer to [facility]. Currently awaiting discharge orders from provider. Visitor at bedside. Call light within reach.
[2023-07-18 11:28] VITALS: BP 131/74; PULSE 94; TEMP 98.2
[2023-07-18] MEDS ORDERED: DECADRON 4MG TAB4 MG PO (12:50)
--- NOTE | 2023-07-18 14:52 | NUR ---
PICC line removed by ziggy Pardo RN. Patient layed flat for 30 min, no bleeding or complications noted. Suprapubic catheter intact. Patient assisted in dressing and belongings sent with cam to [facility]. Transfer packet printed and sent with EMS including H&P, labs, progress notes, education on PICC removal, post pacemaker placement instructions, suprapubic catheter care instructions, etc. Patient transported out with EMS via stretcher, 2L in place via nasal cannula. Attempted to call report to [facility] twice, but no answer. Voicemail left with name and number/reason for calling. Requested return phonecall.
--- NOTE | 2023-07-18 16:42 | NUR ---
SW informed patient would be discharging on this day to [place]. Secure transport confirmed. DC orders sent with patient to facility.
--- NOTE | 2023-07-20 16:08 | NUR ---
location worker was notified the nursing facility is needing history and physical. SW faxed history and physical to [phone].
--- NOTE | 2023-07-21 11:55 | NUR ---
chemical tank worker was informed there were issues regarding discharge for patient. CAMILLE called Felicia Molina at [facility] to discuss. Felicia reports patient was not send any med list, diagnosis, or discharge information. CAMILLE asked if a discharge packet was sent-- she stated she did obtain one from CAMILLE Duff, but it did not have the medications and diagnosis. CAMILLE questioned how this could occur. Felicia reports she would like to get the discharge packet sooner if this were to occur again, as their pharmacy closed when patient arrived Thursday and he was unable to get the medications required. CAMILLE provided that they do not typically have discharge orders/packet completed the day prior.
== END 2023-07-18 14:50 | DRG 853 ==
LOC: COL.ER 08:27 → ICU 09:38 → MEDICAL 07-17 15:25
PROVIDERS: Family Medicine; Internal Medicine; Internal Medicine Cardiovascular Disease; Internal Medicine Pulmonary Disease; ADMIT Internal Medicine
PROC: 02HV33Z Insertion of Infusion Device into Superior Vena Cava, Percutaneous Approach (ICD-10-PCS; principal; 2023-07-09)
PROC: 0BH17EZ Insertion of Endotracheal Airway into Trachea, Via Natural or Artificial Opening (ICD-10-PCS; 2023-07-09)
PROC: 5A1955Z Respiratory Ventilation, Greater than 96 Consecutive Hours (ICD-10-PCS; 2023-07-09)
PROC: 0JH606Z Insertion of Pacemaker, Dual Chamber into Chest Subcutaneous Tissue and Fascia, Open Approach (ICD-10-PCS; 2023-07-10)
PROC: 02H63JZ Insertion of Pacemaker Lead into Right Atrium, Percutaneous Approach (ICD-10-PCS; 2023-07-10)
PROC: 02HK3JZ Insertion of Pacemaker Lead into Right Ventricle, Percutaneous Approach (ICD-10-PCS; 2023-07-10)
PROC: 0BC98ZZ Extirpation of Matter from Lingula Bronchus, Via Natural or Artificial Opening Endoscopic (ICD-10-PCS; 2023-07-11)
PROC: 0BC58ZZ Extirpation of Matter from Right Middle Lobe Bronchus, Via Natural or Artificial Opening Endoscopic (ICD-10-PCS; 2023-07-11)
PROC: 0BC68ZZ Extirpation of Matter from Right Lower Lobe Bronchus, Via Natural or Artificial Opening Endoscopic (ICD-10-PCS; 2023-07-11)
PROC: 0BCB8ZZ Extirpation of Matter from Left Lower Lobe Bronchus, Via Natural or Artificial Opening Endoscopic (ICD-10-PCS; 2023-07-11)
DX: A41.9 Sepsis, unspecified organism (principal); G93.41 Metabolic encephalopathy; J18.9 Pneumonia, unspecified organism; J96.01 Acute respiratory failure with hypoxia; J96.02 Acute respiratory failure with hypercapnia; N17.9 Acute kidney failure, unspecified; E87.20 Acidosis, unspecified; J44.1 Chronic obstructive pulmonary disease with (acute) exacerbation; J44.0 Chronic obstructive pulmonary disease with (acute) lower respiratory infection; N39.0 Urinary tract infection, site not specified; E87.3 Alkalosis; J90 Pleural effusion, not elsewhere classified; Z16.19 Resistance to other specified beta lactam antibiotics; E87.0 Hyperosmolality and hypernatremia; I31.39 Other pericardial effusion (noninflammatory); Z66 Do not resuscitate; R65.20 Severe sepsis without septic shock; E87.5 Hyperkalemia; K21.9 Gastro-esophageal reflux disease without esophagitis; Z20.822 Contact with and (suspected) exposure to COVID-19; I95.9 Hypotension, unspecified; R73.9 Hyperglycemia, unspecified; R00.1 Bradycardia, unspecified; E83.42 Hypomagnesemia; B96.4 Proteus (mirabilis) (morganii) as the cause of diseases classified elsewhere; B96.1 Klebsiella pneumoniae [K. pneumoniae] as the cause of diseases classified elsewhere; F20.9 Schizophrenia, unspecified; I12.9 Hypertensive chronic kidney disease with stage 1 through stage 4 chronic kidney disease, or unspecified chronic kidney disease; E87.8 Other disorders of electrolyte and fluid balance, not elsewhere classified; R13.10 Dysphagia, unspecified; R53.81 Other malaise; E78.5 Hyperlipidemia, unspecified; B95.1 Streptococcus, group B, as the cause of diseases classified elsewhere; I34.0 Nonrheumatic mitral (valve) insufficiency; N40.0 Benign prostatic hyperplasia without lower urinary tract symptoms; N18.30 Chronic kidney disease, stage 3 unspecified; F31.9 Bipolar disorder, unspecified; Z87.891 Personal history of nicotine dependence; Z86.711 Personal history of pulmonary embolism; Z88.5 Allergy status to narcotic agent; Z85.038 Personal history of other malignant neoplasm of large intestine; Z85.118 Personal history of other malignant neoplasm of bronchus and lung; Z79.899 Other long term (current) drug therapy; Z79.01 Long term (current) use of anticoagulants; Z23 Encounter for immunization
CPT/HCPCS: C1751; C1785; C1894; C1898; J0665-JZ; J0690; J0692; J1100; J1265; J1610; J1644; J1650; J1815; J1940; J2251; J2405; J2543; J2704; J3010; J3475; J3480; J7030; J7070; J7120; J8540; Q3014; Q9967